=== PATIENT | female | born 1990 | race Hispanic/Latino ===

== ENCOUNTER 2016-06-29 10:06 | Emergency (ER) | payer MEDICAID, OTHER ==
[~2016-06-29] VITALS: Ht 177.8 cm; Wt 131.1 kg
[~2016-06-29 10:06] MED LIST: ACYC200C PO; CEFD300C3 PO; CYCL10TA9 PO; FLUT9.9S NS; HYDR-757 PO; METH4TAB PO; NAPR-243 PO; PRED10TA PO
[2016-06-29] MEDS ORDERED: PNV91TAB3 PO (10:28)
--- NOTE | 2016-06-29 10:46 | ED Abdominal Pain ---
General Chief Complaint: -Female Stated Complaint: ABD PAIN SOA 10 WKS PREG Nursing Triage Note: pt reports R lower abdominal/pelvic pain and SOA. Pt states she is aprx 10 weeks preg. Sepsis Screen: No Definite Risk Source of Information: Patient Exam Limitations: No Limitations History of Present Illness Time Seen By Provider: 10:42 Initial Comments To ER with complaints of abdominal pain and shortness of breath. The abdominal pain as sharp right lower quadrant began this morning while she was at work. She denies any cramping sensation or vaginal bleeding. She is approximately 10 weeks gestation . She also has had shortness of breath worse when laying down or on her side, better when sitting upright. She also has a nonproductive cough, worse at night. She denies any unilateral leg swelling, history of clotting disorders, recent travel history and she is a nonsmoker. She denies chest pain. No palpitations, no syncope or near syncope. Timing/Duration: 4-5 Days Severity/Quality: Moderate, Sharp Location: RLQ Radiation: No Radiation Associated Symptoms: No Back Pain, No Chest Pain, No Fever/Chills, No Nausea/ Vomiting Allergies and Home Medications Allergies Coded Allergies: No Known Drug Allergies (Unverified , 04/18/14) Home Medications Pnv95/Ferrous Fumarate/FA 1 Each Tablet 1 EACH PO DAILY (Reported) Review of Systems Constitutional: see HPINo chills, No fever EENTM: No Symptoms Reported Respiratory: See HPI Cough Cardiovascular: No Symptoms ReportedDenies Chest Pain, Denies Edema, Denies Irregular Heart Rate, Denies Lightheadedness Gastrointestinal: See HPI Abdominal PainDenies Constipated, Denies Diarrhea, Denies Nausea Genitourinary: No Symptoms ReportedDenies Burning, Denies Discharge, Denies Drainage, Denies Frequency, Denies Flank Pain, Denies Hematuria, Denies Incontinence, Denies Pain, Denies Urgency Musculoskeletal: no symptoms reported Skin: no symptoms reported Psychiatric/Neurological: No Symptoms Reported Endocrine: No Symptoms Reported Hematologic/Lymphatic: No Symptoms Reported Past Fyxmjkh-Pbkjpz-Zqcgrv Hx Patient Social History Alcohol Use: Denies Use Recreational Drug Use: No Smoking Status: Never a Smoker Recent Foreign Travel: No Contact w/Someone Who Travel: No Recent Infectious Disease Expo: No Recent Hopitalizations: No Seasonal Allergies Seasonal Allergies: No Surgeries HX Surgeries: Yes (RUPTURED APPENDIX--HOSPITALIZED X 3 WEEKS) Surgeries: Appendectomy Respiratory Hx Respiratory Disorders: No Cardiovascular Hx Cardiac Disorders: No Neurological Hx Neurological Disorders: No Reproductive System Hx Reproductive Disorders: No Female Reproductive Disorders: Denies 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 Genitourinary Hx Genitourinary Disorders: No Gastrointestinal Hx Gastrointestinal Disorders: No Musculoskeletal Hx Musculoskeletal Disorders: No Endocrine Hx Endocrine Disorders: No HEENT HX ENT Disorders: No Cancer Hx Cancer: No Psychosocial Hx Psychiatric Problems: Yes Behavioral Health Disorders: Anxiety Integumentary HX Skin/Integumentary Disorder: No Blood Transfusions Hx Blood Disorders: No Physical Exam Vital Signs VS - Last 72 Hours, by Label 06/29/16 10:20 Temp 96.6 Pulse 85 Resp 16 B/P 123/77 Pulse Ox 100 Capillary Refill : Less Than 3 Seconds General Appearance: WD/WN no apparent distress HEENT: PERRL/EOMI normal ENT inspection Neck: non-tender full range of motion Respiratory: chest non-tender lungs clear normal breath sounds no respiratory distress no accessory muscle use Cardiovascular: regular rate, rhythm no murmur Gastrointestinal: normal bowel sounds soft other (right lower abdomen and left lower abdomen. No midline pain. ) Extremities: normal range of motion non-tender normal capillary refillNo swelling Neurologic/Psychiatric: alert normal mood/affect oriented x 3 Skin: normal color warm/dry Focused Exam Lactic Acid Level Laboratory Tests Test 06/29/16 10:40 B-Type Natriuretic Peptide < 10.0PG/ML (<100.0) Human Chorionic Gonadotropin, Quant [id number]/ML (<5) H Progress/Results/Core Measures Results/Orders Lab Results Laboratory Tests Test 06/29/16 10:40 06/29/16 12:20 Range/Units B-Type Natriuretic Peptide < 10.0 <100.0 PG/ML Basophils # (Auto) 0.0 0.0-0.1 10^3/uL Basophils (%) (Auto) 0 0-10 % Eosinophils # (Auto) 0.1 0.0-0.3 10^3/uL Eosinophils (%) (Auto) 1 0-10 % Hematocrit 37 35-52 % Hemoglobin 12.1 11.5-16.0 G/DL Human Chorionic Gonadotropin, Quant 11014 H <5 MIU/ML Lymphocytes # (Auto) 3.0 1.0-4.0 X 10^3 Lymphocytes (%) (Auto) 23 12-44 % Mean Corpuscular Hemoglobin 26 25-34 PG Mean Corpuscular Hemoglobin Concent 32 32-36 G/DL Mean Corpuscular Volume 80 80-99 FL Mean Platelet Volume 9.2 7.4-10.4 FL Monocytes # (Auto) 0.6 0.0-1.0 X 10^3 Monocytes (%) (Auto) 5 0-12 % Neutrophils # (Auto) 9.3 H 1.8-7.8 X 10^3 Neutrophils (%) (Auto) 71 42-75 % Platelet Count 361 130-400 10^3/uL Red Blood Count 4.67 4.35-5.85 10^6/uL Red Cell Distribution Width 16.7 H 10.0-14.5 % White Blood Count 13.0 H 4.3-11.0 10^3/uL Urine Bacteria FEW H /HPF Urine Bilirubin NEGATIVE NEGATIVE Urine Casts NONE /LPF Urine Clarity SLIGHTLY CLOUDY Urine Color YELLOW Urine Crystals NONE /LPF Urine Culture Indicated YES Urine Glucose (UA) NEGATIVE NEGATIVE Urine Ketones 2+ H NEGATIVE Urine Leukocyte Esterase 3+ H NEGATIVE Urine Mucus NEGATIVE /LPF Urine Nitrite NEGATIVE NEGATIVE Urine Protein NEGATIVE NEGATIVE Urine RBC NONE /HPF Urine RBC (Auto) NEGATIVE NEGATIVE Urine Specific [place] 1.010 L 1.016-1.022 Urine Squamous Epithelial Cells 25-50 H /HPF Urine Urobilinogen NORMAL NORMAL MG/DL Urine WBC 10-25 H /HPF Urine Yeast FEW H /HPF Urine pH 7 5-9 My Orders Orders-ARMANDO PADILLA DECAL DECORATOR Hcg,Quantitative (06/29/16 10:37) Us Ob Single Fetus<14 [id number] (06/29/16 10:37) Chest Pa/Lat (2 View) (06/29/16 10:42) BNP (06/29/16 10:46) Acetaminophen Tablet (Tylenol Tablet) (06/29/16 11:15) Medications Given in ED Current Medications Medications Dose Ordered Sig/Esme Route Start Time Stop Time Status Last Admin Dose Admin Acetaminophen 1,000 mg ONCE ONCE PO 06/29/16 11:15 06/29/16 11:16 DC 06/29/16 11:24 1,000 MG Vital Signs/I&O Vital Sign - Last 12Hours 06/29/16 10:20 Temp 96.6 Pulse 85 Resp 16 B/P 123/77 Pulse Ox 100 Blood Pressure Mean: 92 Diagnostic Imaging Diagonstic Imaging: Ultrasound Comments NAME: AMANDEEP IBARRA [employer] REC#: [id number] PT STATUS: REG ER : 1990 PHYSICIAN: ARMANDO PADILLA APRN ADMIT DATE: 06/29/16/ER Draft Date of Exam:06/29/16 US OB SINGLE FETUS<14 [id number] PROCEDURE: US OB SINGLE FETUS <14 WKS. TECHNIQUE: Multiple real-time grayscale images were obtained over the gravid uterus in various projections. INDICATION: Abdominal pain. Shortness of breath. FINDINGS: There is a single intrauterine . The embryo heart rate is 165 beats per minute. The crown-rump length is at 10 weeks and one day of gestation. This is equal to dating based on LMP. The ovaries are obscured. The please note that the provided heart rate of 165 is based on the technologist's evaluation and notes and was not documented within image on this exam due to technical error. IMPRESSION: Live intrauterine . Dictated on workstation # [id number] Dict: 06/29/16 1126 Trans: 06/29/16 1200 [facility] [phone] Interpreted by: STEVE NEVAREZ MD Electronically signed by: Departure Communication Progress Notes 1047-Perc Criteria is negative. O2 100% room air, HR 90. No dyspnea or shortness of breath at this time. 1121-US done. Pt states does not want a chest x ray due to concerns of radiation. I advised we'd shield with lead but she would still prefer not to have that done. She believes that her shortness of breath is her anxiety as she' s had it before. She is scheduled to see Dr Cornejo for this on Saturday07/02/16. Impression Impression: Primary Impression: Urinary tract infection Additional Impressions: Shortness of breath Intrauterine Disposition: 01 HOME, SELF-CARE Condition: Stable Departure-Patient Inst. Decision time for Depature: 12:39 Referrals: DEBRA CORNEJO RICHARD A DO (PCP/Family) Primary Care Physician Patient Instructions: Urinary Tract Infection, Adult (DC) Add. Discharge Instructions: 1. Return to the emergency room for any worsening shortness of breath, worsening abdominal pain, lightheadedness, passing out, fevers or any other concerns 2. Keep your appointment with Dr. CORNEJO on Saturday 3. Start antibiotics today. All discharge instructions reviewed with patient and/or family. Voiced understanding. Scripts Cefuroxime Axetil (Cefuroxime)250 Mg [id number] Mg PO BID #14 TAB Prov:ARMANDO PADILLA APRN 06/29/16 Copy Copies To 1: DEBRA CORNEJO PETER J APRN Jun 29, 2016 10:46
[2016-06-29 10:47] LABS: BASOPHILS % (AUTO) 0 % (0-10); EOSINOPHILS # (AUTO) 0.1 10^3/uL (0.0-0.3); EOSINOPHILS % (AUTO) 1 % (0-10); LYMPHOCYTES % (AUTO) 23 % (12-44); MEAN CORPUSCULAR HEMOGLOBIN 26 PG (25-34); MEAN CORPUSCULAR HGB CONC 32 G/DL (32-36); MEAN CORPUSCULAR VOLUME 80 FL (80-99); MEAN PLATELET VOLUME 9.2 FL (7.4-10.4); MONOCYTES # (AUTO) 0.6 X 10^3 (0.0-1.0); MONOCYTES % (AUTO) 5 % (0-12); NEUTROPHILS # (AUTO) 9.3 X 10^3 (1.8-7.8); NEUTROPHILS % (AUTO) 71 % (42-75); PLATELET COUNT 361 10^3/uL (130-400); RED BLOOD COUNT 4.67 10^6/uL (4.35-5.85); RED CELL DISTRIBUTION WIDTH 16.7 % (10.0-14.5)
[2016-06-29] MEDS ORDERED: ACETAMINOPHEN 500 MG TAB (TYLENOL) PO ONE (11:15)
--- NOTE | 2016-06-29 12:01 | Diagnostic Imaging Report ---
PROCEDURE: US OB SINGLE FETUS <14 WKS. TECHNIQUE: Multiple real-time grayscale images were obtained over the gravid uterus in various projections. INDICATION: Abdominal pain. Shortness of breath. FINDINGS: There is a single intrauterine . The embryo heart rate is 165 beats per minute. The crown-rump length is at 10 weeks and one day of gestation. This is equal to dating based on LMP. The ovaries are obscured. The please note that the provided heart rate of 165 is based on the technologist's evaluation and notes and was not documented within image on this exam due to technical error. IMPRESSION: Live intrauterine . Dictated by: Dictated on workstation # [id number]
[2016-06-29 12:30] LABS: BILIRUBIN,URINE NEGATIVE (NEGATIVE); KETONES,URINE 2+ (NEGATIVE); LEUKOCYTE ESTERASE ,URINE 3+ (NEGATIVE); NITRITE,URINE NEGATIVE (NEGATIVE); PH,URINE 7 (5-9); PROTEIN,URINE NEGATIVE (NEGATIVE); UROBILINOGEN,URINE NORMAL (NORMAL)
[2016-06-29 12:38] LABS: SQUAMOUS EPITHELIAL CELL,UR 25-50 /HPF; YEAST,URINE FEW /HPF
[2016-06-29] MEDS ORDERED: CEFU250T80 PO (12:40)
[2016-06-29 12:54] VITALS: BP 128/80
== END 2016-06-29 12:54 | disposition home or self-care (01) ==
LOC: EDUNIT# 10:06 → ER 10:10
DX: O26.891 Other specified pregnancy related conditions, first trimester (principal); R10.30 Lower abdominal pain, unspecified; O23.41 Unspecified infection of urinary tract in pregnancy, first trimester; R06.02 Shortness of breath; Z3A.10 10 weeks gestation of pregnancy
CPT/HCPCS: 36415; 76801; 81000; 83880; 84702; 85025; 87088; 99283

== ENCOUNTER 2016-07-19 16:59 | Emergency (ER) | payer MEDICAID ==
[~2016-07-19] VITALS: Ht 177.8 cm; Wt 119.3 kg
[~2016-07-19 16:59] MED LIST changes: +CEFU250T80 PO; +PNV91TAB3 PO
[2016-07-19] MEDS ORDERED: ACET325T38 PO (19:12)
[2016-07-19 19:35] LABS: BASOPHILS % (AUTO) 0 % (0-10); EOSINOPHILS # (AUTO) 0.1 10^3/uL (0.0-0.3); EOSINOPHILS % (AUTO) 1 % (0-10); LYMPHOCYTES # (AUTO) 3.3 X 10^3 (1.0-4.0); LYMPHOCYTES % (AUTO) 21 % (12-44); MEAN CORPUSCULAR HEMOGLOBIN 27 PG (25-34); MEAN CORPUSCULAR HGB CONC 33 G/DL (32-36); MEAN CORPUSCULAR VOLUME 81 FL (80-99); MEAN PLATELET VOLUME 9.4 FL (7.4-10.4); MONOCYTES # (AUTO) 0.9 X 10^3 (0.0-1.0); MONOCYTES % (AUTO) 6 % (0-12); NEUTROPHILS # (AUTO) 11.8 X 10^3 (1.8-7.8); NEUTROPHILS % (AUTO) 73 % (42-75); PLATELET COUNT 348 10^3/uL (130-400); RED BLOOD COUNT 4.61 10^6/uL (4.35-5.85); RED CELL DISTRIBUTION WIDTH 16.9 % (10.0-14.5); WHITE BLOOD COUNT 16.2 10^3/uL (4.3-11.0)
[2016-07-19 19:40] LABS: BILIRUBIN,URINE NEGATIVE (NEGATIVE); KETONES,URINE NEGATIVE (NEGATIVE); LEUKOCYTE ESTERASE ,URINE 3+ (NEGATIVE); NITRITE,URINE NEGATIVE (NEGATIVE); PH,URINE 6 (5-9); PROTEIN,URINE 1+ (NEGATIVE); UROBILINOGEN,URINE 1 MG/DL (NORMAL)
[2016-07-19 19:52] LABS: SQUAMOUS EPITHELIAL CELL,UR >50 /HPF
[2016-07-19 20:10] LABS: BAND NEUTROPHILS 1 %; BASOPHILS % (MANUAL) 0 %; EOSINOPHILS % (MANUAL) 1 %; LYMPHOCYTES % (MANUAL) 24 %; NEUTROPHILS % (MANUAL) 71 %
[2016-07-19] MEDS ORDERED: AZITHROMYCIN 250 MG TAB (ZITHROMAX) PO ONE (21:15)
[2016-07-19] MEDS ORDERED: LIDOCAINE 1% INJ 20 ML (XYLOCAINE) VIAL INJ ONE (21:15)
[2016-07-19] MEDS ORDERED: cefTRIAXone 1 GM (ROCEPHIN) VIAL IM ONE (21:15)
--- NOTE | 2016-07-19 21:35 | ED GU-Female ---
General Chief Complaint: -Female Stated Complaint: VAG BLEEDING/R BREAST/BACK PAIN/13 WKS PREG Nursing Triage Note: pt c/o abd pain, spotting, chest pain starting yesterday. pt is 13 weeks . Nursing Sepsis Screen: No Definite Risk Source: patient Exam Limitations: no limitations History of Present Illness Time seen by provider: 18:09 Initial Comments This 26-year-old woman presents to the emergency room with complaints of lower abdominal pain and some chest discomfort. She is about 13 weeks gestational age. She had some spotting with wiping today as well. She denies dysuria but does have some vaginal discharge different from her prior pregnancies. Discomfort was bad enough that she could not sleep after taking Tylenol. She has some right lateral chest pain that is tender to palpation and worse with lying on her back. It is intermittent and not severe. She denies any lower extremity symptoms. An ultrasound performed on June 29 showed a 10 week gestational age single intrauterine . heart tones by Doppler are 160-170 Allergies and Home Medications Allergies Coded Allergies: No Known Drug Allergies (Unverified , 04/18/14) Home Medications Acetaminophen 325 Mg Tablet, Unknown Dose PO PRN, (Reported) Clindamycin HCl 300 Mg Capsule, 300 MG PO BID, #14 Prescribed by: MIGEL TORRES on 07/19/162135 Miconazole/Skin Cleanser No.17 1 Each Kit, 1 EACH VG HS, #1 Prescribed by: MIGEL TORRES on 07/19/162135 Pnv95/Ferrous Fumarate/FA 1 Each Tablet, 1 EACH PO DAILY, (Reported) Constitutional: no symptoms reported EENTM: no symptoms reported Respiratory: see HPI Cardiovascular: no symptoms reported Gastrointestinal: see HPI Genitourinary: see HPI : Yes Expected Date of Delivery: Jan 24, 2017 Musculoskeletal: no symptoms reported Skin: no symptoms reported Psychiatric/Neurological: No Symptoms Reported Endocrine: No Symptoms Reported Past Xiirbhu-Tctucs-Xqatkc Hx Patient Social History Alcohol Use: Denies Use Recreational Drug Use: No Smoking Status: Never a Smoker Recent Foreign Travel: No Contact w/Someone Who Travel: No Recent Infectious Disease Expo: No Recent Hopitalizations: No Seasonal Allergies Seasonal Allergies: No Surgeries HX Surgeries: Yes (RUPTURED APPENDIX--HOSPITALIZED X 3 WEEKS) Surgeries: Appendectomy Respiratory Hx Respiratory Disorders: No Cardiovascular Hx Cardiac Disorders: No Neurological Hx Neurological Disorders: No Reproductive System : Yes Hx : 2 Hx Para: 1 Hx Reproductive Disorders: No Female Reproductive Disorders: Denies 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 Genitourinary Hx Genitourinary Disorders: No Gastrointestinal Hx Gastrointestinal Disorders: No Musculoskeletal Hx Musculoskeletal Disorders: No Endocrine Hx Endocrine Disorders: No HEENT HX ENT Disorders: No Cancer Hx Cancer: No Psychosocial Hx Psychiatric Problems: Yes Behavioral Health Disorders: Anxiety Integumentary HX Skin/Integumentary Disorder: No Blood Transfusions Hx Blood Disorders: No Physical Exam Vital Signs Vital Sign - Last 12Hours 07/19/16 07/19/16 18:04 22:06 Temp 98.6 Pulse 90 Resp 14 B/P (MAP) 116/76 Pulse Ox 98 Capillary Refill : Less Than 3 Seconds General Appearance: WD/WN, no apparent distress HEENT: PERRL/EOMI, normal ENT inspection Neck: normal inspection Cardiovascular: regular rate, rhythm, no edema, no murmur Respiratory: lungs clear, normal breath sounds, no respiratory distress, no accessory muscle use, other (Right lateral chest wall tender to palpation) Gastrointestinal: normal bowel sounds, soft, other (Bilateral adnexal tenderness) Genital/Rectal: tenderness, other (Somewhat purulent vaginal discharge and cervical discharge. Vaginal wall erythematous. Cervical motion tenderness noted. 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4 7.4-10.4 FL Neutrophils (%) (Auto) 73 42-75 % Lymphocytes (%) (Auto) 21 12-44 % Monocytes (%) (Auto) 6 0-12 % Eosinophils (%) (Auto) 1 0-10 % Basophils (%) (Auto) 0 0-10 % Neutrophils # (Auto) 11.8 H 1.8-7.8 X 10^3 Lymphocytes # (Auto) 3.3 1.0-4.0 X 10^3 Monocytes # (Auto) 0.9 0.0-1.0 X 10^3 Eosinophils # (Auto) 0.1 0.0-0.3 10^3/uL Basophils # (Auto) 0.0 0.0-0.1 10^3/uL Neutrophils % (Manual) 71 % Lymphocytes % (Manual) 24 % Monocytes % (Manual) 3 % Eosinophils % (Manual) 1 % Basophils % (Manual) 0 % Band Neutrophils 1 % Blood Morphology Comment NORMAL Human Chorionic Gonadotropin, Quant 83247 H <5 MIU/ML Urine Color YELLOW Urine Clarity SLIGHTLY CLOUDY Urine pH 6 5-9 Urine Specific [place] 1.025 H 1.016-1.022 Urine Protein 1+ H NEGATIVE Urine Glucose (UA) NEGATIVE NEGATIVE Urine Ketones NEGATIVE NEGATIVE Urine Nitrite NEGATIVE NEGATIVE Urine Bilirubin NEGATIVE NEGATIVE Urine Urobilinogen 1 NORMAL MG/DL Urine Leukocyte Esterase 3+ H NEGATIVE Urine RBC (Auto) 1+ H NEGATIVE Urine RBC RARE /HPF Urine WBC 10-25 H /HPF Urine Squamous Epithelial Cells >50 H /HPF Urine Crystals NONE /LPF Urine Bacteria MODERATE H /HPF Urine Casts NONE /LPF Urine Mucus MODERATE H /LPF Urine Culture Indicated YES My Orders Orders - MIGEL BASHIR MD Cbc With Automated Diff (07/19/16 18:09) Hcg,Quantitative (07/19/16 18:09) Ua Culture If Indicated (07/19/16 18:09) Abo Rh Type (07/19/16 18:09) Manual Differential (07/19/16 19:20) Urine Culture (07/19/16 19:34) Wet Prep (07/19/16 20:15) Neisseria Gonorrhea Dna (07/19/16 20:15) Chlamydia Dna (4/6/17 20:15) Genital Culture (07/19/16 20:15) Nancy Prep (07/19/16 20:15) Ceftriaxone Injection (Rocephin Injectio (07/19/16 21:15) Lidocaine 1% Injection (Xylocaine 1% Inj (07/19/16 21:15) Azithromycin Tablet (Zithromax Tablet) (07/19/16 21:15) Medications Given in ED Current Medications Medications Dose Ordered Sig/Esme Route Start Time Stop Time Status Last Admin Dose Admin Azithromycin 1,000 mg ONCE ONCE PO 07/19/16 21:15 07/19/16 21:16 DC 07/19/16 21:39 1,000 MG Ceftriaxone Sodium 1,000 mg ONCE ONCE IM 07/19/16 21:15 07/19/16 21:16 DC 07/19/16 21:40 1,000 MG Lidocaine HCl 2.1 ml ONCE ONCE INJ 07/19/16 21:15 07/19/16 21:16 DC 07/19/16 21:40 2.1 ML Vital Signs/I&O Vital Sign - Last 12Hours 07/19/16 22:06 Temp 98.6 Pulse 96 Resp 16 Pulse Ox 98 Blood Pressure Mean: 89 Progress Note : Progress Note Patient was found to have cervicitis on exam. Preliminary vaginal cultures showed rare yeast, positive clue cells, moderate WBC, and negative trichomoniasis. Patient was treated with a gram of Rocephin IM and azithromycin 1 g orally. She was dismissed with a prescription for clindamycin and Monistat for further treatment. heart tones were 160-170 by Doppler. Departure Impression Impression: Primary Impression: Pelvic pain affecting Additional Impressions: Cervicitis Bacterial vaginosis Urinary tract infection Qualified Codes: N39.0 - Urinary tract infection, site not specified Vaginal candidiasis Disposition: HOME, SELF-CARE Condition: Improved Departure-Patient Inst. Decision time for Depature: 21:31 Referrals: DEBRA MATTHEWS DO (PCP) Primary Care Physician ALEJANDRO RENEE DO (Family) Primary Care Physician Patient Instructions: Urinary Tract Infection, Adult (DC) Add. Discharge Instructions: Complete your antibiotics as prescribed. Follow-up with Dr. MATTHEWS as soon as possible to review urine and vaginal cultures. Return to emergency room if symptoms worsen. You may use Tylenol (acetaminophen) up to 1000 mg every 6 hours as needed for pain. Drink plenty of clear liquids. Nothing vaginally including intercourse until cleared by Dr. MATTHEWS. All discharge instructions reviewed with patient and/or family. Voiced understanding. Scripts Miconazole/Skin Cleanser No.17 (Miconazole 3 Kit) 1 Each Kit 1 EACH VG HS, #1 KIT Prov: MIGEL BASHIR MD 07/19/16 Clindamycin HCl (Clindamycin HCl) 300 Mg Capsule 300 MG PO BID, #14 CAP Prov: MIGEL BASHIR MD 07/19/16 Copy Copies To 1: DEBRA MATTHEWS JOSHUA T MD Jul 19, 2016 21:35
[2016-07-19] MEDS ORDERED: MICO1KIT18 VG (21:36)
[2016-07-19] MEDS ORDERED: CLIN300C11 PO (21:36)
[2016-07-19 22:06] VITALS: BP 127/81
--- OUTSIDE RECORDS SUMMARY | 2016-08-19 22:32 | XMS REPORT | Continuity of Care Document ---
Author Author [facility] Organization [facility] Address Unknown Phone Unavailable Allergies Active Description Code Type Severity Reaction Onset Reported/Identified Relationship to Patient Clinical Status Yes No Known Drug Allergies [id number] Drug Allergy Unknown N/ A 04/18/2014 Medications Problems Date Dx Coded Attending Type Code Diagnosis Diagnosed By 04/18/2014 ARMANDO PADILLA APRN Ot 351.0 CH[employer]ERS'S PALSY 04/18/2014 ARMANDO PADILLA APRN Ot 784.0 HEADACHE 11/02/2014 LEFTY DO, JACKIE K Ot 307.81 TENSION HEADACHE 11/02/2014 LEFTY DO, JACKIE K Ot 786.50 CHEST PAIN NOS 11/02/2014 LEFTY DO, JACKIE K Ot 786.52 PAINFUL RESPIRATION 01/02/2016 LEFTY DO, JACKIE K Ot J01.90 ACUTE SINUSITIS, UNSPECIFIED 01/02/2016 LEFTY DO, JACKIE K Ot J40 BRONCHITIS, NOT SPECIFIED ACUTE OR CH 01/02/2016 LEFTY DO, JACKIE K Ot R05 COUGH 01/02/2016 LEFTY DO, JACKIE K Ot R07.81 PLEURODYNIA 01/04/2016 LEFTY DO, JACKIE K Ot J01.90 ACUTE SINUSITIS, UNSPECIFIED 01/04/2016 LEFTY DO, JACKIE K Ot J40 BRONCHITIS, NOT SPECIFIED ACUTE OR CH 01/04/2016 LEFTY DO, JACKIE K Ot R05 COUGH 01/04/2016 LEFTY DO, JACKIE K Ot R07.81 PLEURODYNIA 06/29/2016 ARMANDO PADILLA APRN Ot O23.41 UNSP INFCT OF URINARY TRACT IN 06/29/2016 ARMANDO PADILLA APRN Ot O26.891 OTH RELATED CONDITIONS, FIRST 06/29/2016 ARMANDO PADILLA APRN Ot R06.02 SHORTNESS OF BREATH 06/29/2016 ARMANDO PADILLA HOT WORT SETTLER Ot R10.30 LOWER ABDOMINAL PAIN, UNSPECIFIED 06/29/2016 ARMANDO PADILLA APRN Ot Z3A.10 10 WEEKS GESTATION OF 07/02/2016 ARMANDO PADILLA APRN Ot O23.41 UNSP INFCT OF URINARY TRACT IN 07/02/2016 ARMANDO PADILLA APRN Ot O26.891 OTH RELATED CONDITIONS, FIRST 07/02/2016 ARMANDO PADILLA HOT WORT SETTLER Ot R06.02 SHORTNESS OF BREATH 07/02/2016 ARMANDO PADILLA HOT WORT SETTLER Ot R10.30 LOWER ABDOMINAL PAIN, UNSPECIFIED 07/02/2016 ARMANDO PADILLA APRN Ot Z3A.10 10 WEEKS GESTATION OF 07/19/2016 MIGEL BASHIR MD Ot B37.3 CANDIDIASIS OF VULVA AND VAGINA 07/19/2016 MIGEL BASHIR MD Ot O23.41 UNSP INFCT OF URINARY TRACT IN 07/19/2016 MIGEL BASHIR MD Ot O23.591 INFECTION OTH PRT GENITL TRCT IN PREGNAN 07/19/2016 MIGEL BASHIR MD Ot O26.891 OT RELATED CONDITIONS, FIRST 07/19/2016 MIGEL BASHIR MD Ot R10.2 PELVIC AND PERINEAL PAIN 07/19/2016 MIGEL BASHIR MD Ot Z3A.13 13 WEEKS GESTATION OF 07/20/2016 MIGEL BASHIR MD Ot B37.3 CANDIDIASIS OF VULVA AND VAGINA 07/20/2016 MIGEL BASHIR MD Ot O23.41 UNSP INFCT OF URINARY TRACT IN 07/20/2016 MIGEL BASHIR MD Ot O23.591 INFECTION OTH PRT GENITL TRCT IN PREGNAN 07/20/2016 MIGEL BASHIR MD Ot O26.891 OT RELATED CONDITIONS, FIRST 07/20/2016 MIGEL BASHIR MD Ot R10.2 PELVIC AND PERINEAL PAIN 07/20/2016 MIGEL BASHIR MD Ot Z3A.13 13 WEEKS GESTATION OF 07/25/2016 JCAKIE OLEA DO Ot K80.20 CALCULUS OF GALLBLADDER W/O CHOLECYSTITI 07/25/2016 LEFTY DO, JACKIE K Ot O23.41 UNSP INFCT OF URINARY TRACT IN 07/25/2016 LEFTY , JACKIE K Ot O99.211 OBESITY COMPLICATING , FIRST TR 07/25/2016 LEFTY JAVON BAIRDA K Ot O99.611 DISEASES OF THE DGSTV SYS COMP 07/25/2016 LEFTY JAVON BAIRDA K Ot R07.89 OTHER CHEST PAIN 07/25/2016 LEFTY DO, JACKIE K Ot Z3A.13 13 WEEKS GESTATION OF 07/27/2016 LEFTY , JACKIE K Ot K80.20 CALCULUS OF GALLBLADDER W/O CHOLECYSTITI 07/27/2016 LEFTY JAVON BAIRDA K Ot O23.41 UNSP INFCT OF URINARY TRACT IN 07/27/2016 LEFTY JAVON BAIRDA K Ot O99.211 OBESITY COMPLICATING , FIRST TR 07/27/2016 LEFTY JACKIE K Ot O99.611 DISEASES OF THE DGSTV SYS COMP 07/27/2016 LEFTY JACKIE K Ot R07.89 OTHER CHEST PAIN 07/27/2016 LEFTY , JACKIE K Ot Z3A.13 13 WEEKS GESTATION OF 07/31/2016 JESS EM, KRISTIN Alexis Ot E66.01 MORBID (SEVERE) OBESITY DUE TO EXCESS CA 07/31/2016 JESS EM, KRISTIN Alexis Ot E86.0 DEHYDRATION 07/31/2016 JESS EM, KRISTIN Alexis Ot K80.00 CALCULUS OF GALLBLADDER W ACUTE CHOLECYS 07/31/2016 JESS EM, KRISTIN Alexis Ot O99.211 OBESITY COMPLICATING , FIRST TR 07/31/2016 JESS EM, KRISTIN Alexis Ot O99.611 DISEASES OF THE DGSTV SYS COMP 07/31/2016 JESS ME, KRISTIN Alexis Ot O99.89 OTH DISEASES AND CONDITIONS COMPL PREG/ C 07/31/2016 KRISTIN MERCADO MD Ot Z3A.13 13 WEEKS GESTATION OF 07/31/2016 KRISTIN MERCADO MD, Ot Z68.41 BODY MASS INDEX (BMI) 40.0-44.9, ADULT 08/09/2016 KRISTIN MERCADO MD Ot E66.01 MORBID (SEVERE) OBESITY DUE TO EXCESS CA 08/09/2016 KRISTIN MERCADO MD, Ot E86.0 DEHYDRATION 08/09/2016 KRISTIN MERCADO MD, Ot K80.00 CALCULUS OF GALLBLADDER W ACUTE CHOLECYS 08/09/2016 KRISTIN MERCADO MD, Ot O99.211 OBESITY COMPLICATING , FIRST TR 08/09/2016 KRISTIN MERCADO MD, Ot O99.611 DISEASES OF THE DGSTV SYS COMP 08/09/2016 KRISTIN MERCADO MD, Ot O99.89 OTH DISEASES AND CONDITIONS COMPL PREG/ C 08/09/2016 KRISTIN MERCADO MD, Ot Z3A.13 13 WEEKS GESTATION OF 08/09/2016 KRISTIN MERCADO MD, Ot Z68.41 BODY MASS INDEX (BMI) 40.0-44.9, ADULT Procedures Results Test Result Range Complete blood count (CBC) with automated white blood cell (WBC) differential - 06/29/16 10:40 Blood leukocytes automated count (number/volume) 13.0 10*3/ uL 4.3-11.0 Blood erythrocytes automated count (number/volume) 4.67 10*6 /uL 4.35-5.85 Venous blood hemoglobin measurement (mass/volume) 12.1 g/dL 11.5-16.0 Blood hematocrit (volume fraction) 37 % 35-52 Automated erythrocyte mean corpuscular volume 80 [foz_us] 80-99 Automated erythrocyte mean corpuscular hemoglobin (mass per erythrocyte) 26 pg 25-34 Automated erythrocyte mean corpuscular hemoglobin concentration measurement ( mass/volume) 32 g/dL 32-36 Automated erythrocyte distribution width ratio 16.7 % 10.0-14.5 Automated blood platelet count (count/volume) 361 10*3/uL 130-400 Automated blood platelet mean volume measurement 9.2 [foz_us ] 7.4-10.4 Automated blood neutrophils/100 leukocytes 71 % 42-75 Automated blood lymphocytes/100 leukocytes 23 % 12-44 Blood monocytes/100 leukocytes 5 % 0-12 Automated blood eosinophils/100 leukocytes 1 % 0-10 Automated blood basophils/100 leukocytes 0 % 0-10 Blood neutrophils automated count (number/volume) 9.3 10*3 1.8-7.8 Blood lymphocytes automated count (number/volume) 3.0 10*3 1.0-4.0 Blood monocytes automated count (number/volume) 0.6 10*3 0.0-1.0 Automated eosinophil count 0.1 10*3/uL 0.0-0.3 Automated blood basophil count (count/volume) 0.0 10*3/uL 0.0-0.1 Serum or plasma lithium measurement (moles/volume) - 06/29/16 10:40 BNP level < pg/mL <100.0 Serum or plasma choriogonadotropin measurement (units/volume) - 06/29/16 10:40 Serum or plasma choriogonadotropin measurement (units/volume) 63840 m[iU]/mL <5 Complete urinalysis with reflex to culture - 06/29/16 12:20 Urine color determination YELLOW NRG Urine clarity determination SLIGHTLY CLOUDY NRG Urine pH measurement by test strip 7 5- 9 Specific gravity of urine by test strip 1.010 1.016-1.022 Urine protein assay by test strip, semi-quantitative NEGATIVE NEGATIVE Urine glucose detection by automated test strip NEGATIVE NEGATIVE Erythrocytes detection in urine sediment by light microscopy NEGATIVE NEGATIVE Urine ketones detection by automated test strip 2+ NEGATIVE Urine nitrite detection by test strip NEGATIVE NEGATIVE Urine total bilirubin detection by test strip NEGATIVE NEGATIVE Urine urobilinogen measurement by automated test strip (mass/volume) NORMAL NORMAL Urine leukocyte esterase detection by dipstick 3+ NEGATIVE Automated urine sediment erythrocyte count by microscopy (number/high power field) NONE NRG Automated urine sediment leukocyte count by microscopy (number/high power field ) [HPF] NRG Bacteria detection in urine sediment by light microscopy FEW NRG Squamous epithelial cells detection in urine sediment by light microscopy 25-50 NRG Crystals detection in urine sediment by light microscopy NONE NRG Casts detection in urine sediment by light microscopy NONE NRG Mucus detection in urine sediment by light microscopy NEGATIVE NRG Complete urinalysis with reflex to culture YES NRG Yeast detection in urine sediment by light microscopy FEW NRG Bacterial urine culture - 06/29/16 12:20 Bacterial urine culture FOOTNOTE NRG Complete blood count (CBC) with automated white blood cell (WBC) differential - 07/19/16 19:20 Blood leukocytes automated count (number/volume) 16.2 10*3/ uL 4.3-11.0 Blood erythrocytes automated count (number/volume) 4.61 10*6 /uL 4.35-5.85 Venous blood hemoglobin measurement (mass/volume) 12.3 g/dL 11.5-16.0 Blood hematocrit (volume fraction) 37 % 35-52 Automated erythrocyte mean corpuscular volume 81 [foz_us] 80-99 Automated erythrocyte mean corpuscular hemoglobin (mass per erythrocyte) 27 pg 25-34 Automated erythrocyte mean corpuscular hemoglobin concentration measurement ( mass/volume) 33 g/dL 32-36 Automated erythrocyte distribution width ratio 16.9 % 10.0-14.5 Automated blood platelet count (count/volume) 348 10*3/uL 130-400 Automated blood platelet mean volume measurement 9.4 [foz_us ] 7.4-10.4 Automated blood neutrophils/100 leukocytes 73 % 42-75 Automated blood lymphocytes/100 leukocytes 21 % 12-44 Blood monocytes/100 leukocytes 6 % 0-12 Automated blood eosinophils/100 leukocytes 1 % 0-10 Automated blood basophils/100 leukocytes 0 % 0-10 Blood neutrophils automated count (number/volume) 11.8 10*3 1.8-7.8 Blood lymphocytes automated count (number/volume) 3.3 10*3 1.0-4.0 Blood monocytes automated count (number/volume) 0.9 10*3 0.0-1.0 Automated eosinophil count 0.1 10*3/uL 0.0-0.3 Automated blood basophil count (count/volume) 0.0 10*3/uL 0.0-0.1 ABO+Rh group - 07/19/16 19:20 ABO+Rh group BP NRG Blood manual differential performed detection - 07/19/16 19:20 Blood monocytes/100 leukocytes 3 % NRG Manual blood segmented neutrophils/100 leukocytes 71 % NRG Blood band neutrophils/100 leukocytes 1 % NRG Manual blood lymphocytes/100 leukocytes 24 % NRG Manual eosinophils/100 leukocytes in nose 1 % NRG Manual blood basophils/100 leukocytes 0 % NRG Blood erythrocyte morphology finding identification NORMAL NRG Serum or plasma choriogonadotropin measurement (units/volume) - 07/19/16 19:20 Serum or plasma choriogonadotropin measurement (units/volume) 43780 m[iU]/mL <5 Complete urinalysis with reflex to culture - 07/19/16 19:34 Urine color determination YELLOW NRG Urine clarity determination SLIGHTLY CLOUDY NRG Urine pH measurement by test strip 6 5- 9 Specific gravity of urine by test strip 1.025 1.016-1.022 Urine protein assay by test strip, semi-quantitative 1+ NEGATIVE Urine glucose detection by automated test strip NEGATIVE NEGATIVE Erythrocytes detection in urine sediment by light microscopy 1+ NEGATIVE Urine ketones detection by automated test strip NEGATIVE NEGATIVE Urine nitrite detection by test strip NEGATIVE NEGATIVE Urine total bilirubin detection by test strip NEGATIVE NEGATIVE Urine urobilinogen measurement by automated test strip (mass/volume) 1 mg/dL NORMAL Urine leukocyte esterase detection by dipstick 3+ NEGATIVE Automated urine sediment erythrocyte count by microscopy (number/high power field) RARE NRG Automated urine sediment leukocyte count by microscopy (number/high power field ) [HPF] NRG Bacteria detection in urine sediment by light microscopy MODERATE NRG Squamous epithelial cells detection in urine sediment by light microscopy >50 NRG Crystals detection in urine sediment by light microscopy NONE NRG Casts detection in urine sediment by light microscopy NONE NRG Mucus detection in urine sediment by light microscopy MODERATE NRG Complete urinalysis with reflex to culture YES NRG Bacterial urine culture - 07/19/16 19:34 Bacterial urine culture [id number] NRG COLONY COUNT 10,000/ML - 100,000/ML NRG FTX;REPORTABLE PLUS, NRG FREE TEXT ENTRY 2 MIXED GRAM POSITIVES <10,000/ML NRG Bacteria identification in genital specimen by aerobe culture - 07/19/16 21:10 FREE TEXT EXTERNAL PLUS NORMAL LEEANN NRG QUANTITY OF GROWTH Abundant Growth NRG Bacteria identification in genital specimen by aerobe culture [id number] NRG Microscopic examination by JOSÉ LUIS preparation - 07/19/16 21:10 Microscopic examination by JOSÉ LUIS preparation TNP NRG Microscopic examination by wet preparation - 07/19/16 21:10 WET PREP RESULTS 2124 BY PK/KD NRG Neisseria gonorrhoeae DNA detection by probe and signal amplification method - 07/19/16 21:10 Gonorrhea amp DNA-urine Negative Negative Chlamydia trachomatis DNA detection by probe and signal amplification method - 07/19/16 21:10 Chlamydia trachomatis DNA detection by probe and target amplification method Negative Negative Complete blood count (CBC) with automated white blood cell (WBC) differential - 07/25/16 11:20 Blood leukocytes automated count (number/volume) 13.7 10*3/ uL 4.3-11.0 Blood erythrocytes automated count (number/volume) 4.57 10*6 /uL 4.35-5.85 Venous blood hemoglobin measurement (mass/volume) 12.1 g/dL 11.5-16.0 Blood hematocrit (volume fraction) 37 % 35-52 Automated erythrocyte mean corpuscular volume 81 [foz_us] 80-99 Automated erythrocyte mean corpuscular hemoglobin (mass per erythrocyte) 27 pg 25-34 Automated erythrocyte mean corpuscular hemoglobin concentration measurement ( mass/volume) 33 g/dL 32-36 Automated erythrocyte distribution width ratio 16.4 % 10.0-14.5 Automated blood platelet count (count/volume) 329 10*3/uL 130-400 Automated blood platelet mean volume measurement 9.3 [foz_us ] 7.4-10.4 Automated blood neutrophils/100 leukocytes 69 % 42-75 Automated blood lymphocytes/100 leukocytes 25 % 12-44 Blood monocytes/100 leukocytes 5 % 0-12 Automated blood eosinophils/100 leukocytes 0 % 0-10 Automated blood basophils/100 leukocytes 0 % 0-10 Blood neutrophils automated count (number/volume) 9.5 10*3 1.8-7.8 Blood lymphocytes automated count (number/volume) 3.5 10*3 1.0-4.0 Blood monocytes automated count (number/volume) 0.6 10*3 0.0-1.0 Automated eosinophil count 0.1 10*3/uL 0.0-0.3 Automated blood basophil count (count/volume) 0.0 10*3/uL 0.0-0.1 PT panel in platelet poor plasma by coagulation assay - 07/25/16 11:20 Prothrombin time (PT) in platelet poor plasma by coagulation assay 12.7 s 12.2-14.7 INR in platelet poor plasma or blood by coagulation assay 1.0 0.8-1.4 Activated partial thromboplastin time (aPTT) in platelet poor plasma bycoagulation assay - 07/25/16 11:20 Activated partial thromboplastin time (aPTT) in platelet poor plasma bycoagulation assay 33 s 24-35 Comprehensive metabolic panel - 07/25/16 11:20 Serum or plasma sodium measurement (moles/volume) 137 mmol/ L 135-145 Serum or plasma potassium measurement (moles/volume) 3.8 mmol/L 3.6-5.0 Serum or plasma chloride measurement (moles/volume) 105 mmol /L 98-107 Carbon dioxide 24 mmol/L 21-32 Serum or plasma anion gap determination (moles/volume) 8 mmol/L 5-14 Serum or plasma urea nitrogen measurement (mass/volume) 10 mg/dL 7-18 Serum or plasma creatinine measurement (mass/volume) 0.61 mg /dL 0.60-1.30 Serum or plasma urea nitrogen/creatinine mass ratio 16 NRG Serum or plasma creatinine measurement with calculation of estimated glomerular filtration rate > NRG Serum or plasma glucose measurement (mass/volume) 110 mg/dL 70-105 Serum or plasma calcium measurement (mass/volume) 9.2 mg/dL 8.5-10.1 Serum or plasma total bilirubin measurement (mass/volume) 0.1 mg/dL 0.1-1.0 Serum or plasma alkaline phosphatase measurement (enzymatic activity/volume) 78 U/L 40-136 Serum or plasma aspartate aminotransferase measurement (enzymatic activity/ volume) 17 U/L 5-34 Serum or plasma alanine aminotransferase measurement (enzymatic activity/volume ) 21 U/L 0-55 Serum or plasma protein measurement (mass/volume) 7.7 g/dL 6.4-8.2 Serum or plasma albumin measurement (mass/volume) 3.5 g/dL 3.2-4.5 Magnesium - 07/25/16 11:20 Magnesium 1.7 mg/dL 1.8-2.4 Serum or plasma creatine kinase measurement (enzymatic activity/volume) - 07/25 11:20 Serum or plasma creatine kinase measurement (enzymatic activity/volume) 27 U/L 29-168 Serum or plasma lithium measurement (moles/volume) - 07/25/16 11:20 BNP level < pg/mL <100.0 Serum or plasma creatine kinase MB measurement (enzymatic activity/volume) - 11:20 Serum or plasma creatine kinase MB measurement (enzymatic activity/volume) 0.3 ng/mL <6.6 Serum or plasma troponin i.cardiac measurement (mass/volume) - 07/25/16 11:20 Serum or plasma troponin i.cardiac measurement (mass/volume) < ng/mL <0.30 Serum or plasma thyrotropin measurement by detection limit <=0.05 miu/l (units/ volume) - 07/25/16 11:20 Serum or plasma thyrotropin measurement by detection limit <=0.05 miu/l (units/ volume) 0.91 u[iU]/mL 0.35-4.94 Serum or plasma amylase measurement (enzymatic activity/volume) - 07/25/16 11: 20 Serum or plasma amylase measurement (enzymatic activity/volume) 17 U/L 25-125 Lipase - 07/25/16 11:20 Lipase 13 U/L 8-78 Complete urinalysis with reflex to culture - 07/25/16 13:34 Urine color determination YELLOW NRG Urine clarity determination SLIGHTLY CLOUDY NRG Urine pH measurement by test strip 6.5 5 -9 Specific gravity of urine by test strip 1.020 1.016-1.022 Urine protein assay by test strip, semi-quantitative 1+ NEGATIVE Urine glucose detection by automated test strip NEGATIVE NEGATIVE Erythrocytes detection in urine sediment by light microscopy NEGATIVE NEGATIVE Urine ketones detection by automated test strip 3+ NEGATIVE Urine nitrite detection by test strip NEGATIVE NEGATIVE Urine total bilirubin detection by test strip NEGATIVE NEGATIVE Urine urobilinogen measurement by automated test strip (mass/volume) 1 mg/dL NORMAL Urine leukocyte esterase detection by dipstick 3+ NEGATIVE Automated urine sediment erythrocyte count by microscopy (number/high power field) NONE NRG Automated urine sediment leukocyte count by microscopy (number/high power field ) [HPF] NRG Bacteria detection in urine sediment by light microscopy MODERATE NRG Squamous epithelial cells detection in urine sediment by light microscopy 10-25 NRG Crystals detection in urine sediment by light microscopy NONE NRG Casts detection in urine sediment by light microscopy NONE NRG Mucus detection in urine sediment by light microscopy SMALL NRG Complete urinalysis with reflex to culture YES NRG Urine drug screening test - 07/25/16 13:34 Urine phencyclidine detection by screening method NEGATIVE NEGATIVE Urine benzodiazepines detection by screening method NEGATIVE NEGATIVE Urine cocaine detection NEGATIVE NEGATIVE Urine amphetamines detection by screening method NEGATIVE NEGATIVE Urine methamphetamine detection by screening method NEGATIVE NEGATIVE Urine cannabinoids detection by screening method NEGATIVE NEGATIVE Urine opiates detection by screening method NEGATIVE NEGATIVE Urine barbiturates detection NEGATIVE NEGATIVE Screening urine tricyclic antidepressants detection NEGATIVE NEGATIVE Urine methadone detection by screening method NEGATIVE NEGATIVE Urine oxycodone detection NEGATIVE NEGATIVE Urine propoxyphene detection NEGATIVE NEGATIVE Bacterial urine culture - 07/25/16 13:34 URINE CULTURE RESULTS <10,000/ML NRG Complete blood count (CBC) with automated white blood cell (WBC) differential - 07/27/16 08:58 Blood leukocytes automated count (number/volume) 11.9 10*3/ uL 4.3-11.0 Blood erythrocytes automated count (number/volume) 4.45 10*6 /uL 4.35-5.85 Venous blood hemoglobin measurement (mass/volume) 11.9 g/dL 11.5-16.0 Blood hematocrit (volume fraction) 36 % 35-52 Automated erythrocyte mean corpuscular volume 82 [foz_us] 80-99 Automated erythrocyte mean corpuscular hemoglobin (mass per erythrocyte) 27 pg 25-34 Automated erythrocyte mean corpuscular hemoglobin concentration measurement ( mass/volume) 33 g/dL 32-36 Automated erythrocyte distribution width ratio 16.7 % 10.0-14.5 Automated blood platelet count (count/volume) 343 10*3/uL 130-400 Automated blood platelet mean volume measurement 9.2 [foz_us ] 7.4-10.4 Automated blood neutrophils/100 leukocytes 73 % 42-75 Automated blood lymphocytes/100 leukocytes 21 % 12-44 Blood monocytes/100 leukocytes 6 % 0-12 Automated blood eosinophils/100 leukocytes 0 % 0-10 Automated blood basophils/100 leukocytes 0 % 0-10 Blood neutrophils automated count (number/volume) 8.8 10*3 1.8-7.8 Blood lymphocytes automated count (number/volume) 2.5 10*3 1.0-4.0 Blood monocytes automated count (number/volume) 0.7 10*3 0.0-1.0 Automated eosinophil count 0.0 10*3/uL 0.0-0.3 Automated blood basophil count (count/volume) 0.0 10*3/uL 0.0-0.1 Comprehensive metabolic panel - 07/27/16 08:58 Serum or plasma sodium measurement (moles/volume) 138 mmol/ L 135-145 Serum or plasma potassium measurement (moles/volume) 3.4 mmol/L 3.6-5.0 Serum or plasma chloride measurement (moles/volume) 106 mmol /L 98-107 Carbon dioxide 23 mmol/L 21-32 Serum or plasma anion gap determination (moles/volume) 9 mmol/L 5-14 Serum or plasma urea nitrogen measurement (mass/volume) 8 mg /dL 7-18 Serum or plasma creatinine measurement (mass/volume) 0.54 mg /dL 0.60-1.30 Serum or plasma urea nitrogen/creatinine mass ratio 15 NRG Serum or plasma creatinine measurement with calculation of estimated glomerular filtration rate > NRG Serum or plasma glucose measurement (mass/volume) 96 mg/dL 70-105 Serum or plasma calcium measurement (mass/volume) 8.8 mg/dL 8.5-10.1 Serum or plasma total bilirubin measurement (mass/volume) 0.8 mg/dL 0.1-1.0 Serum or plasma alkaline phosphatase measurement (enzymatic activity/volume) 113 U/L 40-136 Serum or plasma aspartate aminotransferase measurement (enzymatic activity/ volume) 70 U/L 5-34 Serum or plasma alanine aminotransferase measurement (enzymatic activity/volume ) 78 U/L 0-55 Serum or plasma protein measurement (mass/volume) 7.5 g/dL 6.4-8.2 Serum or plasma albumin measurement (mass/volume) 3.5 g/dL 3.2-4.5 Methicillin resistant Staphylococcus aureus (MRSA) screening culture - 18:31 MRSA SCREEN RESULT MRSA NOT ISOLATED NRG Encounters ACCT No. Visit Date/Time Discharge Status Pt. Type Provider Facility Loc./Unit Complaint [id number] 07/27/2016 12:40:00 2016 10:10:00 DIS Outpatient JESS EM, KRISTIN Alexis [facility] CHOLELITHIASIS/ITIS [id number] 07/25/2016 11:01:00 2016 14:58:00 DIS Emergency JACKIE OLEA DO [facility] ER LIGHTHEADED SOA/CHEST PAIN [id number] 07/19/2016 17:02:00 2016 22:06:00 DIS Emergency KRYSTEN EM, MIGEL Reis [facility] ER VAG BLEEDING/R BREAST/BACK PAIN/13 WKS PREG [id number] 06/29/2016 10:10:00 2016 12:54:00 DIS Emergency ARMANDO PADILLA APRN [facility] ER ABD PAIN SOA 10 WKS PREG [id number] 01/02/2016 07:07:00 2015 11:22:00 DIS Emergency JACKIE OLEA DO [facility] ER UPPER ABD/RIGHT RIB PAIN [id number] 11/02/2014 16:26:00 2014 20:18:00 DIS Emergency JACKIE OLEA DO [facility] ER CHEST PAIN;HEADACHE [id number] 04/18/2014 11:52:00 2014 13:44:00 DIS Emergency ARMANDO PADILLA APRN [facility] ER FACIAL PAIN,VOMITING [id number] 09/06/2016 13:00:00 PEN Preadmit DEBRA MATTHEWS DO [facility] RAD Z34.82
== END 2016-07-19 22:06 | disposition home or self-care (01) ==
LOC: EDUNIT# 16:59 → ER 17:02
DX: O23.591 Infection of other part of genital tract in pregnancy, first trimester (principal); B37.3 Candidiasis of vulva and vagina; O26.891 Other specified pregnancy related conditions, first trimester; O23.41 Unspecified infection of urinary tract in pregnancy, first trimester; R10.2 Pelvic and perineal pain; Z3A.13 13 weeks gestation of pregnancy
CPT/HCPCS: 36415; 81000; 84702; 85007; 85027; 86900; 86901; 87070; 87088; 87210; 87220; 87491; 87591; 96372; 99284

== ENCOUNTER 2016-07-25 10:59 | Emergency (ER) | payer MEDICAID ==
[~2016-07-25] VITALS: Ht 177.8 cm; Wt 130.2 kg
[~2016-07-25 10:59] MED LIST changes: +ACET325T38 PO; +CLIN300C11 PO; +MICO1KIT18 VG
[2016-07-25 11:42] LABS: BASOPHILS % (AUTO) 0 % (0-10); EOSINOPHILS # (AUTO) 0.1 10^3/uL (0.0-0.3); EOSINOPHILS % (AUTO) 0 % (0-10); LYMPHOCYTES # (AUTO) 3.5 X 10^3 (1.0-4.0); LYMPHOCYTES % (AUTO) 25 % (12-44); MEAN CORPUSCULAR HEMOGLOBIN 27 PG (25-34); MEAN CORPUSCULAR HGB CONC 33 G/DL (32-36); MEAN CORPUSCULAR VOLUME 81 FL (80-99); MEAN PLATELET VOLUME 9.3 FL (7.4-10.4); MONOCYTES # (AUTO) 0.6 X 10^3 (0.0-1.0); MONOCYTES % (AUTO) 5 % (0-12); NEUTROPHILS # (AUTO) 9.5 X 10^3 (1.8-7.8); NEUTROPHILS % (AUTO) 69 % (42-75); PLATELET COUNT 329 10^3/uL (130-400); RED BLOOD COUNT 4.57 10^6/uL (4.35-5.85); RED CELL DISTRIBUTION WIDTH 16.4 % (10.0-14.5); WHITE BLOOD COUNT 13.7 10^3/uL (4.3-11.0)
[2016-07-25 11:45] LABS: PROTHROMBIN TIME PATIENT 12.7 SEC (12.2-14.7)
[2016-07-25 11:55] LABS: ALANINE AMINOTRANSFERASE 21 U/L (0-55); ALBUMIN 3.5 G/DL (3.2-4.5); ANION GAP 8 MMOL/L (5-14); ASPARTATE AMINO TRANSFERASE 17 U/L (5-34); BILIRUBIN,TOTAL 0.1 MG/DL (0.1-1.0); BLOOD UREA NITROGEN 10 MG/DL (7-18); BUN/CREATININE RATIO 16; CALCIUM 9.2 MG/DL (8.5-10.1); CARBON DIOXIDE 24 MMOL/L (21-32); CHLORIDE 105 MMOL/L (98-107); CREATINE KINASE 27 U/L (29-168); CREATININE SERUM 0.61 MG/DL (0.60-1.30); GFR ESTIMATED > 60; GLUCOSE 110 MG/DL (70-105); MAGNESIUM 1.7 MG/DL (1.8-2.4); POTASSIUM 3.8 MMOL/L (3.6-5.0); SODIUM 137 MMOL/L (135-145); TOTAL PROTEIN 7.7 G/DL (6.4-8.2)
[2016-07-25 12:15] LABS: TROPONIN I < 0.30 NG/ML (<0.30)
[2016-07-25 12:17] LABS: AMYLASE 17 U/L (25-125); LIPASE 13 U/L (8-78)
--- NOTE | 2016-07-25 13:03 | Diagnostic Imaging Report ---
PROCEDURE: US abdomen complete. TECHNIQUE: Multiple real-time grayscale images were obtained over the abdomen in various projections. INDICATION: Chest and abdominal pain. FINDINGS: The pancreas is obscured by bowel gas. The left hepatic lobe is also obscured. The right hepatic lobe demonstrates no focal mass. Hepatopetal flow in the portal vein is demonstrated. There is suggestion of gallstones and sludge with no significant gallbladder wall thickening. These appear to be lodged in the gallbladder neck area during the scan. The CBD is 6 mm in caliber. The spleen is 10.8 cm in length. The right kidney is 10.9 cm and the left kidney is 13.8 cm in length. No hydronephrosis or focal lesion is identified. No ascites or fluid collection in the abdomen seen. Sonographic Franklin's sign is reportedly negative. The visualized portions of the IVC appear unremarkable. The abdominal aorta is obscured by bowel gas. IMPRESSION: Cholelithiasis. Dictated by: Dictated on workstation # [id number]
[2016-07-25 13:47] LABS: BILIRUBIN,URINE NEGATIVE (NEGATIVE); KETONES,URINE 3+ (NEGATIVE); LEUKOCYTE ESTERASE ,URINE 3+ (NEGATIVE); NITRITE,URINE NEGATIVE (NEGATIVE); PH,URINE 6.5 (5-9); PROTEIN,URINE 1+ (NEGATIVE); UROBILINOGEN,URINE 1 MG/DL (NORMAL)
--- NOTE | 2016-07-25 14:12 | ED Chest Pain ---
General Chief Complaint: Chest Pain Stated Complaint: LIGHTHEADED SOA/CHEST PAIN Nursing Triage Note: PT C/O MID STERNAL CP RADIATING TO THAT BEGAN THIS AM. SHE STATES SHE HAD DIAPHORESIS, DIZZINESS, AND DYSPNEA. PT HAS HX OF ANXIETY. Nursing Sepsis Screen: No Definite Risk Source: patient History of Present Illness Time seen by provider: 11:30 Initial Comments PT ARRIVES VIA POV C/O PAIN IN RIGHT AND MID CHEST AND SLIGHT PAIN IN LEFT CHEST OFF AND ON SINCE Saturday07/19/16. HAS HAD SHORTNESS OF BREATH AND SWEATS NO SWELLING IN LEGS/ FEET OR PAIN IN CALVES NO COUGH, URI SYMPTOMS OR FEVER PT HAD UPPER ABDOMINAL PAIN LAST SATURDAY BUT NONE SINCE PT IS 15 WEEKS NO VAGINAL BLEEDING OR DISCHARGE NO URINARY SYMPTOMS AT THIS TIME, BUT PT IS BEING TREATED FOR UTI WAS HERE ON 07/19/16 AND GIVEN RX'S FOR MICONAZOLE AND CLINDAMYCIN PT HAS AN APPOINTMENT WITH DR. MATTHEWS ON Saturday07/30/16 HAS NOT TAKEN ANYTHING FOR PAIN PT STATES SHE HAS ANXIETY AND THIS FEELS LIKE ANXIETY Allergies and Home Medications Allergies Coded Allergies: No Known Drug Allergies (Unverified , 04/18/14) Home Medications Acetaminophen 325 Mg Tablet, Unknown Dose PO PRN, (Reported) Clindamycin HCl 300 Mg Capsule, 300 MG PO BID, #14 Prescribed by: MIGEL TORRES on 07/19/162135 Miconazole/Skin Cleanser No.17 1 Each Kit, 1 EACH VG HS, #1 Prescribed by: MIGEL TORRES on 07/19/162135 Pnv95/Ferrous Fumarate/FA 1 Each Tablet, 1 EACH PO DAILY, (Reported) Review of Systems Constitutional: diaphoresis, No fever Respiratory: See HPI, Shortness of Air Cardiovascular: See HPI, Chest Pain Gastrointestinal: See HPI (NO SYMPTOMS NOW) Genitourinary: See HPI Musculoskeletal: no symptoms reported Skin: no symptoms reported Psychiatric/Neurological: See HPI, Anxiety Endocrine: No Symptoms Reported Hematologic/Lymphatic: No Symptoms Reported Past Syuhoyq-Ynfvzg-Wrkiqf Hx Patient Social History Alcohol Use: Denies Use Recreational Drug Use: No Smoking Status: Never a Smoker 2nd Hand Smoke Exposure: No Recent Foreign Travel: No Contact w/Someone Who Travel: No Recent Infectious Disease Expo: No Recent Hopitalizations: No Seasonal Allergies Seasonal Allergies: No Surgeries HX Surgeries: Yes (RUPTURED APPENDIX--HOSPITALIZED X 3 WEEKS) Surgeries: Appendectomy Respiratory Hx Respiratory Disorders: No Cardiovascular Hx Cardiac Disorders: No Neurological Hx Neurological Disorders: No Reproductive System : Yes Hx Reproductive Disorders: No Female Reproductive Disorders: Denies Genitourinary Hx Genitourinary Disorders: Yes Genitourinary Disorders: Bladder Infection Gastrointestinal Hx Gastrointestinal Disorders: No Musculoskeletal Hx Musculoskeletal Disorders: No Endocrine Hx Endocrine Disorders: Yes (MORBID OBESITY) HEENT HX ENT Disorders: No Cancer Hx Cancer: No Psychosocial Hx Psychiatric Problems: Yes Behavioral Health Disorders: Anxiety Integumentary HX Skin/Integumentary Disorder: No Blood Transfusions Hx Blood Disorders: No Physical Exam Vital Signs Vital Sign - Last 12Hours 07/25/16 11:00 Temp 97.5 Pulse 80 Resp 23 B/P (MAP) 125/79 Pulse Ox 99 O2 Delivery Room Air Capillary Refill : Less Than 3 Seconds General Appearance: No Apparent Distress, Anxious, Obese, Other (VERY DRAMATIC , MILD HYPER VENTILATION) Neck: Full Range of Motion, Normal Inspection, Non Tender, Supple, No JVD Respiratory: Normal Breath Sounds, No Accessory Muscle Use, No Respiratory Distress, Other (MARKED TENDERNESS TO ENTIRE CHEST AND RUQ--MORE TENDER IN RIGHT AND MID CHEST--PALPATION DRAMATICALLY REPRODUCES PAIN ) Cardiovascular: Regular Rate, Rhythm, No Edema, No JVD, No Murmur, Normal Peripheral Pulses Gastrointestinal: Normal Bowel Sounds, No Organomegaly, No Pulsatile Mass, Soft , Tenderness (RUQ) Extremity: Normal Inspection, No Calf Tenderness, No Pedal Edema Neurologic/Psychiatric: Alert, Oriented x3, No Motor/Sensory 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, 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 Skin: Normal Color, Warm/Dry Progress/Results/Core Measures Results/Orders Lab Results Laboratory Tests Test 07/25/16 11:20 07/25/16 13:34 Range/Units White Blood Count 13.7 H 4.3-11.0 10^3/uL Red Blood Count 4.57 4.35-5.85 10^6/uL Hemoglobin 12.1 11.5-16.0 G/DL Hematocrit 37 35-52 % Mean Corpuscular Volume 81 80-99 FL Mean Corpuscular Hemoglobin 27 25-34 PG Mean Corpuscular Hemoglobin Concent 33 32-36 G/DL Red Cell Distribution Width 16.4 H 10.0-14.5 % Platelet Count 329 130-400 10^3/uL Mean Platelet Volume 9.3 7.4-10.4 FL Neutrophils (%) (Auto) 69 42-75 % Lymphocytes (%) (Auto) 25 12-44 % Monocytes (%) (Auto) 5 0-12 % Eosinophils (%) (Auto) 0 0-10 % Basophils (%) (Auto) 0 0-10 % Neutrophils # (Auto) 9.5 H 1.8-7.8 X 10^3 Lymphocytes # (Auto) 3.5 1.0-4.0 X 10^3 Monocytes # (Auto) 0.6 0.0-1.0 X 10^3 Eosinophils # (Auto) 0.1 0.0-0.3 10^3/uL Basophils # (Auto) 0.0 0.0-0.1 10^3/uL Prothrombin Time 12.7 12.2-14.7 SEC INR Comment 1.0 0.8-1.4 Activated Partial Thromboplast Time 33 24-35 SEC Sodium Level 137 135-145 MMOL/L Potassium Level 3.8 3.6-5.0 MMOL/L Chloride Level 105 98-107 MMOL/L Carbon Dioxide Level 24 21-32 MMOL/L Anion Gap 8 5-14 MMOL/L Blood Urea Nitrogen 10 7-18 MG/DL Creatinine 0.61 0.60-1.30 MG/DL Estimat Glomerular Filtration Rate > 60 BUN/Creatinine Ratio 16 Glucose Level 110 H 70-105 MG/DL Calcium Level 9.2 8.5-10.1 MG/DL Magnesium Level 1.7 L 1.8-2.4 MG/DL Total Bilirubin 0.1 0.1-1.0 MG/DL Aspartate Amino Transf (AST/SGOT) 17 5-34 U/L Alanine Aminotransferase (ALT/SGPT) 21 0-55 U/L Alkaline Phosphatase 78 40-136 U/L Total Creatine Kinase 27 L 29-168 U/L Creatine Kinase MB 0.3 <6.6 NG/ML Troponin I < 0.30 <0.30 NG/ML B-Type Natriuretic Peptide < 10.0 <100.0 PG/ML Total Protein 7.7 6.4-8.2 G/DL Albumin 3.5 3.2-4.5 G/DL Amylase Level 17 L 25-125 U/L Lipase 13 8-78 U/L TSH [place] Testing 0.91 0.35-4.94 UIU/ML Urine Color YELLOW Urine Clarity SLIGHTLY CLOUDY Urine pH 6.5 5-9 Urine Specific [place] 1.020 1.016-1.022 Urine Protein 1+ H NEGATIVE Urine Glucose (UA) NEGATIVE NEGATIVE Urine Ketones 3+ H NEGATIVE Urine Nitrite NEGATIVE NEGATIVE Urine Bilirubin NEGATIVE NEGATIVE Urine Urobilinogen 1 NORMAL MG/DL Urine Leukocyte Esterase 3+ H NEGATIVE Urine RBC (Auto) NEGATIVE NEGATIVE Urine RBC NONE /HPF Urine WBC 5-10 H /HPF Urine Squamous Epithelial Cells 10-25 H /HPF Urine Crystals NONE /LPF Urine Bacteria MODERATE H /HPF Urine Casts NONE /LPF Urine Mucus SMALL H /LPF Urine Culture Indicated YES Urine Opiates Screen NEGATIVE NEGATIVE Urine Oxycodone Screen NEGATIVE NEGATIVE Urine Methadone Screen NEGATIVE NEGATIVE Urine Propoxyphene Screen NEGATIVE NEGATIVE Urine Barbiturates Screen NEGATIVE NEGATIVE Ur Tricyclic Antidepressants Screen NEGATIVE NEGATIVE Urine Phencyclidine Screen NEGATIVE NEGATIVE Urine Amphetamines Screen NEGATIVE NEGATIVE Urine Methamphetamines Screen NEGATIVE NEGATIVE Urine Benzodiazepines Screen NEGATIVE NEGATIVE Urine Cocaine Screen NEGATIVE NEGATIVE Urine Cannabinoids Screen NEGATIVE NEGATIVE Micro Results Microbiology 07/25/16 Urine Culture - Preliminary, Resulted My Orders Orders - JACKIE OLEA DO Ekg Tracing (07/25/16 11:33) Monitor-Rhythm Ecg Trace Only (07/25/16 11:33) BNP (07/25/16 11:33) Cbc With Automated Diff (07/25/16 11:33) Comprehensive Metabolic Panel (07/25/16 11:33) Creatine Kinase (07/25/16 11:33) Creatine Kinase Mb (07/25/16 11:33) Magnesium (07/25/16 11:33) Protime With Inr (07/25/16 11:33) Partial Thromboplastin Time (07/25/16 11:33) Thyroid Analyzer (07/25/16 11:33) Troponin I (07/25/16 11:33) Amylase (07/25/16 11:55) Lipase (07/25/16 11:55) Us Abdomen Complete [id number] (07/25/16 11:55) Drug Screen Stat (Urine) (07/25/16 12:21) Ua Culture If Indicated (07/25/16 12:21) Heart Tones (07/25/16 12:42) Urine Culture (07/25/16 13:34) Vital Signs/I&O Vital Sign - Last 12Hours 07/25/16 07/25/16 07/25/16 11:00 11:00 14:58 Temp 97.5 97.5 Pulse 80 80 Resp 23 23 B/P (MAP) 125/79 Pulse Ox 99 99 O2 Delivery Room Air Room Air Blood Pressure Mean: 94 Progress Note : Progress Note SYMPTOMS RESOLVED DURING ER STAY ECG Initial ECG Impression Time: 11:15 Initial ECG Rate: 80 Initial ECG Rhythm: Normal Sinus Initial ECG Impression: Normal Initial ECG Comparisson: No Previous ECG Available Diagnostic Imaging Comments ABDOMINAL ULTRASOUND--CHOLELITHIASIS, PER RADIOLOGIST REPORT Reviewed: Reviewed by Me Departure Impression Impression: Primary Impression: Chest wall pain Additional Impressions: UTI (urinary tract infection) in in first trimester Cholelithiasis Disposition: 01 HOME, SELF-CARE Condition: Stable Departure-Patient Inst. Referrals: DEBRA MATTHEWS RICHARD A DO (PCP/Family) Primary Care Physician Patient Instructions: Avoiding Infections in , Chest Pain That Is Not Caused by the Heart (DC), Gallstones (DC), - The Fourth Month, Urinary Tract Infection, Adult (DC) Add. Discharge Instructions: LOTS OF CLEAR LIQUIDS--NO COFFEE, POP OR TEA LOW FAT DIET--LESS THAN 20 GRAMS OF FAT A DAY TYLENOL 2 PILLS 4 TIMES A DAY FOR PAIN CONTINUE YOUR CURRENT ANTIBIOTICS FOLLOW UP WITH DR. MATTHEWS ON SATURDAY SCHEDULED All discharge instructions reviewed with patient and/or family. Voiced understanding. JACKIE OLEA DO Jul 25, 2016 14:12
[2016-07-25 14:58] VITALS: BP 125/79
== END 2016-07-25 14:58 | disposition home or self-care (01) ==
LOC: EDUNIT# 10:59 → ER 11:01
DX: R07.89 Other chest pain (principal); O23.41 Unspecified infection of urinary tract in pregnancy, first trimester; O99.611 Diseases of the digestive system complicating pregnancy, first trimester; K80.20 Calculus of gallbladder without cholecystitis without obstruction; O99.211 Obesity complicating pregnancy, first trimester; Z3A.13 13 weeks gestation of pregnancy
CPT/HCPCS: 36415; 76700; 80053; 80306; 81000; 82150; 82550; 82553; 83690; 83735; 83880; 84443; 84484; 85025; 85610; 85730; 87088; 93005; 93041

== ENCOUNTER 2016-07-27 08:18 | Day surgery (SDC) | payer MEDICAID ==
[~2016-07-27] VITALS: Ht 177.8 cm; Wt 131.1 kg
[2016-07-27] MEDS ORDERED: CEPH500C (08:37)
[2016-07-27 09:04] LABS: BASOPHILS % (AUTO) 0 % (0-10); EOSINOPHILS % (AUTO) 0 % (0-10); LYMPHOCYTES # (AUTO) 2.5 X 10^3 (1.0-4.0); LYMPHOCYTES % (AUTO) 21 % (12-44); MEAN CORPUSCULAR HEMOGLOBIN 27 PG (25-34); MEAN CORPUSCULAR HGB CONC 33 G/DL (32-36); MEAN CORPUSCULAR VOLUME 82 FL (80-99); MEAN PLATELET VOLUME 9.2 FL (7.4-10.4); MONOCYTES # (AUTO) 0.7 X 10^3 (0.0-1.0); MONOCYTES % (AUTO) 6 % (0-12); NEUTROPHILS # (AUTO) 8.8 X 10^3 (1.8-7.8); NEUTROPHILS % (AUTO) 73 % (42-75); PLATELET COUNT 343 10^3/uL (130-400); RED BLOOD COUNT 4.45 10^6/uL (4.35-5.85); RED CELL DISTRIBUTION WIDTH 16.7 % (10.0-14.5); WHITE BLOOD COUNT 11.9 10^3/uL (4.3-11.0)
[2016-07-27 09:33] LABS: ALANINE AMINOTRANSFERASE 78 U/L (0-55); ALBUMIN 3.5 G/DL (3.2-4.5); ANION GAP 9 MMOL/L (5-14); ASPARTATE AMINO TRANSFERASE 70 U/L (5-34); BILIRUBIN,TOTAL 0.8 MG/DL (0.1-1.0); BLOOD UREA NITROGEN 8 MG/DL (7-18); BUN/CREATININE RATIO 15; CALCIUM 8.8 MG/DL (8.5-10.1); CARBON DIOXIDE 23 MMOL/L (21-32); CHLORIDE 106 MMOL/L (98-107); CREATININE SERUM 0.54 MG/DL (0.60-1.30); GFR ESTIMATED > 60; GLUCOSE 96 MG/DL (70-105); POTASSIUM 3.4 MMOL/L (3.6-5.0); SODIUM 138 MMOL/L (135-145); TOTAL PROTEIN 7.5 G/DL (6.4-8.2)
[2016-07-27] MEDS: NS IV 1000 ML 1,000 ML IV SCH ×2 (09:43→19:45)
[2016-07-27] MEDS ORDERED: ONDANSETRON 4 MG/2 ML (SDV) Z0FRAN IVP ONE (09:45)
--- NOTE | 2016-07-27 11:20 | ED Abdominal Pain ---
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 ALSO COMPLAINS OF EPIGASTRIC PAIN AND HAS A HX OF GALLSTONES. Sepsis Screen: No Definite Risk Source of Information: Patient Exam Limitations: No Limitations History of Present Illness Time Seen By Provider: 10:45 Initial Comments The patient is a 26-year-old female who presents with right lateral chest pain and persistent nausea and vomiting. She reports she was awake most of the night with this discomfort. She was here 2 days ago and workup included a pelvic sonogram and an abdominal sonogram. The abdominal sonogram suggested possible gallstones and sludge. The gallbladder wall was stated to be normal in thickness. She describes pain in the area of the anterior and mid axillary line and radiating upward. She hadn't had vomiting until the last 2 days. She has not been on any Zofran at this point. She had one child previously and did not have the nausea of . Timing/Duration: Other (3 weeks) Allergies and Home Medications Allergies Coded Allergies: No Known Drug Allergies (Unverified , 04/18/14) Home Medications Cephalexin 500 Mg Capsule, #21 (Reported) Pnv95/Ferrous Fumarate/FA 1 Each Tablet, 1 EACH PO DAILY, (Reported) Review of Systems Constitutional: see HPI EENTM: No Symptoms Reported Respiratory: No Symptoms Reported Cardiovascular: No Symptoms Reported Gastrointestinal: Abdominal Pain, Nausea, Poor Appetite, Vomiting Genitourinary: No Symptoms Reported Musculoskeletal: muscle pain Skin: no symptoms reported Psychiatric/Neurological: No Symptoms Reported Endocrine: No Symptoms Reported Past Pucihkv-Jemard-Zejzjt Hx Patient Social History 2nd Hand Smoke Exposure: No Recent Foreign Travel: No Contact w/Someone Who Travel: No Recent Infectious Disease Expo: No Recent Hopitalizations: No Seasonal Allergies Seasonal Allergies: No Surgeries HX Surgeries: Yes (RUPTURED APPENDIX--HOSPITALIZED X 3 WEEKS) Surgeries: Appendectomy Respiratory Hx Respiratory Disorders: No Cardiovascular Hx Cardiac Disorders: No Neurological Hx Neurological Disorders: No Reproductive System Hx Reproductive Disorders: No Female Reproductive Disorders: 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 Genitourinary Hx Genitourinary Disorders: Yes Genitourinary Disorders: Bladder Infection Gastrointestinal Hx Gastrointestinal Disorders: No Musculoskeletal Hx Musculoskeletal Disorders: No Endocrine Hx Endocrine Disorders: Yes (MORBID OBESITY) HEENT HX ENT Disorders: No Cancer Hx Cancer: No Psychosocial Hx Psychiatric Problems: Yes Behavioral Health Disorders: Anxiety Integumentary HX Skin/Integumentary Disorder: No Blood Transfusions Hx Blood Disorders: No Physical Exam Vital Signs VS - Last 72 Hours, by Label 07/27/16 08:25 Temp 98.0 Pulse 94 Resp 16 B/P (MAP) 119/83 Pulse Ox 98 Capillary Refill : Less Than 3 Seconds General Appearance: mild distress, moderate distress HEENT: normal ENT inspection Neck: full range of motion Respiratory: chest non-tender, lungs clear, normal breath sounds, no respiratory distress, no accessory muscle use Cardiovascular: normal peripheral pulses, regular rate, rhythm, no edema, no gallop, no JVD, no murmur Gastrointestinal: other (mild tenderness right upper quadrant) Extremities: normal range of motion, non-tender, normal inspection, no pedal edema, no calf tenderness, normal capillary refill, pelvis stable 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, no motor/sensory deficits, alert, normal mood/affect, oriented x 3 Skin: normal color, warm/dry Lymphatic: no adenopathy Progress/Results/Core Measures Results/Orders Lab Results Laboratory Tests Test 07/27/16 08:58 Range/Units White Blood Count 11.9 H 4.3-11.0 10^3/uL Red Blood Count 4.45 4.35-5.85 10^6/uL Hemoglobin 11.9 11.5-16.0 G/DL Hematocrit 36 35-52 % Mean Corpuscular Volume 82 80-99 FL Mean Corpuscular Hemoglobin 27 25-34 PG Mean Corpuscular Hemoglobin Concent 33 32-36 G/DL Red Cell Distribution Width 16.7 H 10.0-14.5 % Platelet Count 343 130-400 10^3/uL Mean Platelet Volume 9.2 7.4-10.4 FL Neutrophils (%) (Auto) 73 42-75 % Lymphocytes (%) (Auto) 21 12-44 % Monocytes (%) (Auto) 6 0-12 % Eosinophils (%) (Auto) 0 0-10 % Basophils (%) (Auto) 0 0-10 % Neutrophils # (Auto) 8.8 H 1.8-7.8 X 10^3 Lymphocytes # (Auto) 2.5 1.0-4.0 X 10^3 Monocytes # (Auto) 0.7 0.0-1.0 X 10^3 Eosinophils # (Auto) 0.0 0.0-0.3 10^3/uL Basophils # (Auto) 0.0 0.0-0.1 10^3/uL Sodium Level 138 135-145 MMOL/L Potassium Level 3.4 L 3.6-5.0 MMOL/L Chloride Level 106 98-107 MMOL/L Carbon Dioxide Level 23 21-32 MMOL/L Anion Gap 9 5-14 MMOL/L Blood Urea Nitrogen 8 7-18 MG/DL Creatinine 0.54 L 0.60-1.30 MG/DL Estimat Glomerular Filtration Rate > 60 BUN/Creatinine Ratio 15 Glucose Level 96 70-105 MG/DL Calcium Level 8.8 8.5-10.1 MG/DL Total Bilirubin 0.8 0.1-1.0 MG/DL Aspartate Amino Transf (AST/SGOT) 70 H 5-34 U/L Alanine Aminotransferase (ALT/SGPT) 78 H 0-55 U/L Alkaline Phosphatase 113 40-136 U/L Total Protein 7.5 6.4-8.2 G/DL Albumin 3.5 3.2-4.5 G/DL My Orders Orders - ENMA COSTA MD Cbc With Automated Diff (07/27/16 08:47) Comprehensive Metabolic Panel (07/27/16 08:47) Ua Culture If Indicated (07/27/16 08:47) Ns Iv 1000 Ml (Sodium Chloride 0.9%) (07/27/16 09:45) Ondansetron Injection (Zofran Injectio (07/27/16 09:45) Medications Given in ED Current Medications Medications Dose Ordered Sig/Esme Route Start Time Stop Time Status Last Admin Dose Admin Ondansetron HCl 8 mg ONCE ONCE IVP 07/27/16 09:45 07/27/16 09:46 DC 07/27/16 09:43 4 MG Vital Signs/I&O Vital Sign - Last 12Hours 07/27/16 08:25 Temp 98.0 Pulse 94 Resp 16 B/P (MAP) 119/83 Pulse Ox 98 Blood Pressure Mean: 95 Departure Communication Progress Notes [address] Marquis, surgeon on-call 1136 after discussing the problem more specifically with the patient I believe that she is been suffering from this right upper quadrant pain since her first visit on 3/21. I went down to sonography and reviewed the films with the with the highway maintenance worker's and we believe that these are rather clearly stones and not possibly. Accordingly I'm discussing this with Dr. Marquis again. 1215 Dr. Marquis has seen the patient and will plan to perform cholecystectomy later this afternoon. Impression Impression: Primary Impression: subacute cholecystitis Disposition: ADMITTED INPATIENT Decision to Admit Reason: Admit from ER (General) Decision to Admit/Date: Jul 27, 2016 Time/Decision to Admit Time: 12:34 Departure-Patient Inst. Referrals: ALEJANDRO RENEE DO (PCP/Family) Primary Care Physician ENMA COSTA MD Jul 27, 2016 11:20
--- NOTE | 2016-07-27 13:46 | History & Physicial ---
History of Present Illness History of Present Illness Reason for visit/HPI persistent right upper quadrant pain, nausea and vomiting for almost 10 days. Date of Admission 07/27/16 I consulted on this patient on 07/27/16 13:42 Attending Physician Daniella Admitting Physician daniella Consult Allergies and Home Medications Allergies Coded Allergies: No Known Drug Allergies (Unverified , 04/18/14) Home Medications Cephalexin 500 Mg Capsule, #21 (Reported) Pnv95/Ferrous Fumarate/FA 1 Each Tablet, 1 EACH PO DAILY, (Reported) Past Fauiprg-Vmftaa-Iywoyf Hx Patient Social History Marrital Status: Number of Children: 1 Number of living children: 1 Employed/Student: employed Alcohol Use: Denies Use Smoking Status: Never a Smoker 2nd Hand Smoke Exposure: No Recent Foreign Travel: No Contact w/other who traveled: No Recent Hopitalizations: No Recent Infectious Disease Expo: No Seasonal Allergies Seasonal Allergies: No Surgeries HX Surgeries: Yes (RUPTURED APPENDIX--HOSPITALIZED X 3 WEEKS) Surgeries: Appendectomy Respiratory Hx Respiratory Disorders: No Cardiovascular Hx Cardiovascular Disorders: No Neurological Hx Neurological Disorders: No Reproductive System : Yes Hx Reproductive Disorders: No Female Reproductive Disorders: Denies Genitourinary Hx Genitourinary Disorders: Yes Genitourinary Disorders: Bladder Infection Gastrointestinal Hx Gastrointestinal Disorders: Yes Gastrointestinal Disorders: Gall Bladder Disease Musculoskeletal Hx Musculoskeletal Disorders: No Endocrine Hx Endocrine Disorders: No (MORBID OBESITY) HEENT HX ENT Disorders: No Cancer Hx Cancer: No Psychosocial Hx Psychiatric Problems: No Behavioral Health Disorders: Anxiety Integumentary HX Skin/Integumentary Disorder: No Blood Transfusions Hx Blood Disorders: No Family Medical History Significant Family History: No Pertinent Family Hx EENTM: see HPI Respiratory: no symptoms reported Cardiovascular: no symptoms reported Gastrointestinal: RUQ, abdominal pain (RUQ), loss of appetite, nausea, vomiting Genitourinary: dysuria : Yes Musculoskeletal: no symptoms reported Skin: no symptoms reported Psychiatric/Neurological: No Symptoms Reported Physical Exam Vital Signs Vital Sign - Last 12Hours 07/27/16 08:25 Temp 98.0 Pulse 94 Resp 16 B/P (MAP) 119/83 Pulse Ox 98 Capillary Refill : Less Than 3 Seconds General Appearance: Mild Distress HEENT: PERRL/EOMI Neck: Normal Inspection Respiratory: Lungs Clear Cardiovascular: Regular Rate, Rhythm Gastrointestinal: Tenderness Back: Normal Inspection Extremity: Normal Capillary Refill Neurologic/Psychiatric: Alert, Oriented x3 Skin: Warm/Dry Lymphatic: No Adenopathy Comments tender right upper quadrant. Subumbilical scar from laparoscopic appendectomy. No incisional hernia Assessment/Plan Assessment and Plan lady with symptomatic gallstones. Slight elevation of white cell Slight elevation of transaminases, bilirubin and alkaline phosphatase being normal. Second trimester at 13 weeks. Due to her symptoms, she is being admitted to receive antiemetics and for correction of dehydration. Reasonable to this plan cholecystectomy. Risk of miscarriage and loss of the fetus discussed urine though the risk is less during second for Mr. Operative details discussed. Problems: Admission Diagnosis gallstones. KRISTIN MERCADO MD Jul 27, 2016 13:46
[2016-07-27 14:00] VITALS: BP 105/70
[2016-07-27] MEDS ORDERED: ACET-93 PO (14:12)
[2016-07-27] MEDS ORDERED: CLIN150C17 PO (14:12)
[2016-07-27] MEDS ORDERED: PNV11TAB5 PO (14:12)
[2016-07-27] MEDS ORDERED: NS IV 1000 ML 1,000 ML IV SCH (14:15)
[2016-07-27 15:35] VITALS: BP 104/70
[2016-07-27 19:45] VITALS: BP 114/74
[2016-07-28] VITALS: BP 112/73
[2016-07-28] MEDS: NS IV 1000 ML 1,000 ML IV SCH ×2 (00:29→10:51)
[2016-07-28] MEDS: ACETAMINOPHEN 500 MG TAB (TYLENOL) PO PRN ×2 (00:51→12:13)
[2016-07-28 04:10] VITALS: BP 98/65
[2016-07-28 08:00] VITALS: BP 114/76
[2016-07-28 11:47] VITALS: BP 109/75
[2016-07-28] MEDS: ONDANSETRON 8 MG (ZOFRAN) ORAL DISSOLVE TAB PO PRN (12:14)
--- NOTE | 2016-07-28 12:33 | Progress Note (SOAP) ---
Subjective Subjective/Events-last exam substernal and right upper quadrant pain radiating to the back continue. No nausea. Tolerating clear liquids Review of Systems General: No Chills, No Night Sweats, No Fatigue, No Malaise HEENT: No Head Aches, No Eye Pain, No Ear Pain, No Dysphasia, No Sinus Congestion, No Post Nasal Drip, No Sore Throat Pulmonary: No Dyspnea, No Cough, No Pleuritic Chest Pain Cardiovascular: Chest Pain Gastrointestinal: Abdominal Pain Genitourinary: No Dysuria, No Frequency, No Incontinence, No Hematuria, No Retention Musculoskeletal: No: arm pain, back pain, foot pain, hand pain, leg pain, neck pain, other, shoulder pain Neurological: No: Change in speech, Confusion, Incoordination, Numbness, Other , Seizures, Weakness Objective Exam Vital Signs Date Time Temp Pulse Resp B/P (MAP) Pulse Ox O2 Delivery O2 Flow Rate FiO2 07/28/16 11:47 98.5 75 18 109/75 98 Room Air 07/28/16 08:00 96.9 73 18 114/76 97 Room Air 07/28/16 04:10 98.6 86 18 98/65 97 Room Air 07/28/16 00:00 97.2 77 17 112/73 95 Room Air 07/27/16 20:35 Room Air 07/27/16 19:45 98.1 73 17 114/74 95 Room Air 07/27/16 15:35 97.2 69 18 104/70 99 Room Air 07/27/16 14:57 97 07/27/16 14:00 97.7 78 18 105/70 97 Room Air 07/27/16 14:00 79 16 98 I & O 07/28/16 07:00 Intake Total 1800 ml Output Total 575 ml Balance 1225 ml Capillary Refill : Less Than 3 Seconds General Appearance: Anxious, Mild Distress HEENT: PERRL/EOMI Neck: Normal Inspection Respiratory: Lungs Clear Cardiovascular: Regular Rate, Rhythm Gastrointestinal: non tender, soft Neurologic/Psychiatric: Alert, Oriented x3 Skin: Warm/Dry Other comments Franklin's sign negative Assessment/Plan Assessment/Plan Assess & Plan/Chief Complaint lady with symptomatic gallstones. Second trimester . Will advance diet slowly and cholecystomy scheduled for Saturday Final Diagnosis gallstones. Second to Mr. Clinical Quality Measures DVT/VTE Risk/Contraindication: Risk Factor Score Per Nursin RFS Level Per Nursing on Admit: 1=Low/No VTE PPX KRISTIN MERCADO MD Jul 28, 2016 12:33 pm
[2016-07-28] MEDS: D5 1/2 NS W/KCL 20 MEQ/L 1,000 ML IV SCH ×2 (13:48→23:54)
[2016-07-28] MEDS: ANTACID SUSP 30 ML UDC (MYLANTA) PO PRN (13:49)
[2016-07-28 15:55] VITALS: BP 110/74
[2016-07-28 19:30] VITALS: BP 109/64
[2016-07-29] VITALS: BP 94/61
[2016-07-29] MEDS: ACETAMINOPHEN 500 MG TAB (TYLENOL) PO PRN ×2 (03:58→22:54)
[2016-07-29] MEDS: ONDANSETRON 8 MG (ZOFRAN) ORAL DISSOLVE TAB PO PRN ×3 (03:58→22:55)
[2016-07-29 08:00] VITALS: BP 105/65
[2016-07-29] MEDS: ANTACID SUSP 30 ML UDC (MYLANTA) PO PRN (08:17)
[2016-07-29] MEDS: D5 1/2 NS W/KCL 20 MEQ/L 1,000 ML IV SCH ×2 (09:53→19:06)
--- NOTE | 2016-07-29 11:35 | Progress Note (SOAP) ---
Subjective Subjective/Events-last exam intermittent nausea and right upper quadrant abdominal pain. Substernal pain resolved. Vital signs stable. Cholecystomy screening for tomorrow Review of Systems General: No Chills, No Night Sweats, No Fatigue, No Malaise HEENT: No Head Aches, No Eye Pain, No Ear Pain, No Dysphasia, No Sinus Congestion, No Post Nasal Drip, No Sore Throat Pulmonary: No Dyspnea, No Cough, No Pleuritic Chest Pain Cardiovascular: No: Chest Pain, Edema, Lt Headedness, Orthopnea, Palpitations, Paroxysmal Noc. Dyspnea Gastrointestinal: Abdominal Pain, Nausea Genitourinary: No Dysuria, No Frequency, No Incontinence, No Hematuria, No Retention Musculoskeletal: No: arm pain, back pain, foot pain, hand pain, leg pain, neck pain, other, shoulder pain Neurological: No: Change in speech, Confusion, Incoordination, Numbness, Other , Seizures, Weakness Objective Exam Vital Signs Date Time Temp Pulse Resp B/P (MAP) Pulse Ox O2 Delivery O2 Flow Rate FiO2 07/29/16 08:00 97.7 72 18 105/65 96 Room Air 07/29/16 00:00 97.2 81 20 94/61 98 Room Air 07/28/16 20:40 Room Air 07/28/16 19:30 97.8 82 16 109/64 98 07/28/16 15:55 98.6 94 16 110/74 98 07/28/16 11:47 98.5 75 18 109/75 98 Room Air I & O 07/29/16 07:00 Intake Total 2290 ml Output Total 700 ml Balance 1590 ml Capillary Refill : Less Than 3 Seconds General Appearance: No Apparent Distress HEENT: TMs Normal Neck: Full Range of Motion Respiratory: Lungs Clear Cardiovascular: Regular Rate, Rhythm Gastrointestinal: non tender, soft Extremity: Normal Capillary Refill Neurologic/Psychiatric: Alert, Oriented x3 Skin: Normal Color, Warm/Dry Assessment/Plan Assessment/Plan Assess & Plan/Chief Complaint lady with symptomatic gallstones. Second trimester . Will advance diet slowly and cholecystomy scheduled for Saturday name with symptomatically gallstones. Second dose of . Cholecystomy scheduled for tomorrow Final Diagnosis gallstones. Clinical Quality Measures DVT/VTE Risk/Contraindication: Risk Factor Score Per Nursin RFS Level Per Nursing on Admit: 1=Low/No VTE PPX KRISTIN MERCADO MD Jul 29, 2016 11:35 am
[2016-07-29 16:00] VITALS: BP 104/70
[2016-07-29 23:22] VITALS: BP 117/74
[2016-07-30] MEDS ORDERED: ANTACID SUSP 30 ML UDC (MYLANTA) ONE (00:20)
[2016-07-30] MEDS: ANTACID SUSP 30 ML UDC (MYLANTA) PO PRN (00:25)
[2016-07-30] MEDS: D5 1/2 NS W/KCL 20 MEQ/L 1,000 ML IV SCH ×2 (05:21→17:20)
[2016-07-30 08:00] VITALS: BP 105/70
[2016-07-30] MEDS ORDERED: BUP/EPI 0.25% 1:200,000 (MARCAINE) 30 ML VIAL ONE (12:15)
[2016-07-30] MEDS ORDERED: metroNIDAZOLE 500MG/100ML IVPB 100 ML ONE (12:37)
[2016-07-30] MEDS ORDERED: ceFAZolin 1,000 MG (ANCEF) VIAL ONE (12:37)
[2016-07-30] MEDS ORDERED: NS (IVPB) 50 ML ONE (12:37)
[2016-07-30] MEDS: LACTATED RINGERS 1,000 ML IV PRN ×2 (12:43→13:30)
[2016-07-30] MEDS ORDERED: fentaNYL INJECTION 100 MCG/2 ML AMP ONE ×4 (12:46→15:31)
[2016-07-30] MEDS ORDERED: LIDOCAINE PF 2% 10 ML (XYLOCAINE) AMP ONE (12:46)
[2016-07-30] MEDS ORDERED: SEVOFLURANE (ULTANE) 15 ML INHAL SOLN ONE ×7 (12:46→14:43)
[2016-07-30] MEDS ORDERED: proPOfol 200 MG/20 ML (DIPRIVAN) VIAL IV ONE (12:46)
[2016-07-30] MEDS ORDERED: LACTATED RINGERS 1,000 ML IV ONE (12:46)
[2016-07-30] MEDS ORDERED: ceFAZolin INJECTION 1,000 MG in NS (IVPB) 50 ML IV NR (13:00)
[2016-07-30] MEDS ORDERED: metroNIDAZOLE 500MG/100ML IVPB 100 ML IV NR (13:00)
[2016-07-30] MEDS ORDERED: ONDANSETRON 4 MG/2 ML (SDV) Z0FRAN ONE (13:55)
[2016-07-30] MEDS ORDERED: GLYCOPYRROLATE 0.2 MG/ML (ROBINUL) 2 ML VIAL ONE (14:34)
[2016-07-30] MEDS ORDERED: NEOSTIGMINE (BLOXIVERZ ) 1 MG/1ML 10 ML VIAL ONE (14:34)
[2016-07-30] MEDS ORDERED: ROCURONIUM 50 MG/5 ML (ZEMURON) VIAL IV ONE (14:36)
--- NOTE | 2016-07-30 14:43 | Progress Note-Post Operative ---
Post-Operative Progess Note Surgeon (s)/Podiatrist Assistant (s) Surgeon KRISTNI MERCADO MD Podiatrist Assistant: Ashly Blanca Pre-Operative Diagnosis Gallstones Post-Operative Diagnosis 1.Gallstones 2.Acute cholecystitis Post-Op Procedure Note Date of Procedure: Jul 30, 2016 Name of Procedure Performed: Robotic assisted cholecystectomy Description of the Procedure: See op note Findings of the Procedure Acutely inflamed GB Anesthesia Type GA Estimated blood loss (mL): Minimal Specimen(s) collected/removed Gallbladder KRISTIN MERCADO MD Jul 30, 2016 2:43 pm
[2016-07-30] MEDS ORDERED: HYDROcodone/APAP 5 MG/325 MG (LORTAB) TAB PO PRN (14:45)
[2016-07-30] MEDS ORDERED: fentaNYL INJECTION 100 MCG/2 ML AMP IVP PRN (14:45)
[2016-07-30] MEDS ORDERED: HYDR-3812 PO (14:46)
--- NOTE | 2016-07-30 14:47 | Discharge Inst-Simple/Standard ---
Discharge Inst-Standard Discharge Medications New, Converted or Re-Newed RX: RX on Chart Patient Instructions/Follow Up Plan of Care/Instructions/FU: Dressings off in am. Incentive spirometry. F/U in 2 weeks Activity as Tolerated: Yes Discharge Diet: No Restrictions KRISTIN MERCADO MD Jul 30, 2016 2:47 pm
[2016-07-30] MEDS ORDERED: ONDANSETRON 4 MG/2 ML (SDV) Z0FRAN IVP PRN (15:00)
[2016-07-30] MEDS: fentaNYL INJECTION 100 MCG/2 ML AMP IVP PRN ×2 (15:10→15:30)
[2016-07-30 16:15] VITALS: BP 117/71
[2016-07-31] VITALS: BP 116/61
[2016-07-31] MEDS: ACETAMINOPHEN 500 MG TAB (TYLENOL) PO PRN ×2 (01:55→10:09)
[2016-07-31] MEDS: D5 1/2 NS W/KCL 20 MEQ/L 1,000 ML IV SCH (01:56)
[2016-07-31 04:50] VITALS: BP 122/63
[2016-07-31 08:00] VITALS: BP 117/60
--- NOTE | 2016-07-31 14:10 | Diagnostic Imaging Report ---
PROCEDURE: US OB SINGLE FETUS <14 WKS. TECHNIQUE: Multiple real-time grayscale images were obtained over the gravid uterus in various projections. INDICATION: No heart rate detected on exam. Status post cholecystectomy. FINDINGS: There is an intrauterine with heart rate at 156 beats per second. The placenta is anterior. No placenta previa. The growth parameters are all around 14 weeks and 6 days consistent with the gestational age determined on prior exam of 06/29/2016 of 14 weeks and 4 days. IMPRESSION: Live intrauterine . Appropriate interval growth. Dictated by: Dictated on workstation # [id number]
--- NOTE | 2016-07-31 15:18 | Anesthesia-General Post-Op ---
General Patient Condition Mental Status/LOC: Same as Preop Cardiovascular: Satisfactory Nausea/Vomiting: Absent Respiratory: Satisfactory Pain: Controlled Complications: Absent Post Op Complications Complications None Follow Up Care/Instructions Patient Instructions None needed. Anesthesia/Patient Condition Patient Condition Patient is doing well, no complaints, stable vital signs, no apparent adverse anesthesia problems. No complications reported per nursing. D/C home per [facility] Criteria: Yes VASU MARROQUIN CRNA Jul 31, 2016 15:18
--- NOTE | 2016-08-01 08:22 | OPERATIVE REPORT ---
PROCEDURE PHYSICIAN: KRISTIN MERCADO DATE OF PROCEDURE: 07/30/2016 PREOPERATIVE DIAGNOSIS: Gallstones POSTOPERATIVE DIAGNOSIS: 1. Gallstones. 2. Acute cholecystitis. OPERATION: Robotic assisted cholecystectomy. SURGEON: Benitez ANESTHESIA: General anesthesia. BLOOD LOSS: Minimal FLUIDS: 1600 cc Crystalloids TYPE OF WOUND: Type III (contaminant wound) INDICATION OF PROCEDURE: This lady, who is 13 weeks , presented with severe symptoms due to gallstones. Following intravenous fluid management and management of her nausea, she was offered cholecystectomy with minimally invasive technique, using robotic assistance. Informed consent was obtained after reviewing the operative details and highlighting the risk of loss and complications of bile leak. DESCRIPTION OF PROCEDURE: She was placed on the operative table and general anesthesia induced using an endotracheal tube. A gram of Ancef and 500 mg of Flagyl were administered intravenously as a prophylaxis against wound infection. Sequential compression devices were placed around her legs, to minimize the risk of venous thrombosis. Abdomen was prepared and draped in the usual sterile manner. Pneumoperitoneum was established using a Veress needle introduced over the supraumbilical region. A transverse incision was made and a 12 mm trocar placed. Intraabdominal pressure was maintained at 50 mmHg. Anatomy was visualized using a 30 degree high definition laparoscope associated with da Tylor system. Gallbladder was acutely inflamed. Under direct view, I placed an 8 mm cannula over each side of the abdomen, followed by a 5 mm trocar over the left upper quadrant. The patient was then turned in reverse Trendelenburg position with the right side tilted up. The robotic system was then docked in place. The fundus of the gallbladder was retracted cephalad and the infundibulum grasped with Cadiere forceps. Thickened tissue around the neck of the gallbladder was incised using hook cautery, delineating the cystic duct and artery. Both were divided between locking clips. Cholecystectomy was then completed using the hook cautery itself. Subhepatic space was then irrigated with saline and the gallbladder placed in an Endo catch bag, to be removed via the supraumbilical trocar site. The fascia over this incision was closed using number 1 Vicryl using the Endo close device. Subcutaneous tissue over the supraumbilical incision was closed using 3-0 Vicryl. Skin incisions were closed using 4-0 Vicryl, in a subcuticular fashion. 0.25% Marcaine with epinephrine was infiltrated along the incisions, both pre-emptive and at the conclusion of the operation. She tolerated the procedure well and was extubated in the operating room and taken to the recovery in a stable condition. [place], sponges and instruments were correct at the end of the operation. Job ID: [id number] Dictated Date: 07/30/2016 14:41:00 Branch Controller Date: 08/01/2016 07:59:21 / livia CAMACHO
--- NOTE | 2016-08-03 10:35 | DISCHARGE SUMMARY ---
DATE OF SERVICE: 07/31/2016 DIAGNOSES: 1. Gallstones. 2. Acute cholecystitis. 3. Mid-trimester . HISTORY OF PRESENT ILLNESS: This patient, who is 13-weeks , presented with symptomatic gallstones. Following management for nausea and the associated dehydration, she underwent cholecystectomy using minimally invasive technique with robotic assistance. Findings of early acute cholecystitis were discovered. She has since made a satisfactory recovery. She underwent a formal ultrasound of the fetus, which was found to be viable with adequate heart tones at the time of discharge. She will follow up with her celery wrapper, Dr. Cornejo, in 2-3 days and with me in about 1 week. Job ID: [id number] DocumentID: [id number] Dictated Date: 08/03/2016 08:32:21 Batch Operator Date: 08/03/2016 10:34:42 Dictated By: KRISTIN MERCADO MD
== END 2016-07-31 10:10 | disposition home or self-care (01) ==
LOC: EDUNIT# 08:18 → ER 08:22 → 4TH 12:40 → SDC 12:40 → ENPENDDIS 07-31 10:00 → SDC 07-31 10:10
PROVIDERS: ATTEND Surgery
DX: O99.611 Diseases of the digestive system complicating pregnancy, first trimester (principal); K80.00 Calculus of gallbladder with acute cholecystitis without obstruction; O99.89 Other specified diseases and conditions complicating pregnancy, childbirth and the puerperium; E86.0 Dehydration; O99.211 Obesity complicating pregnancy, first trimester; E66.01 Morbid (severe) obesity due to excess calories; Z68.41 Body mass index [BMI] 40.0-44.9, adult; Z3A.13 13 weeks gestation of pregnancy
CPT/HCPCS: 36415; 80053; 85025; 87081; 88304; 96374

== ENCOUNTER → 2016-09-06 | Outpatient (CLI) | payer MEDICAID ==
[~2016-09-06] MED LIST changes: +ACET-93 PO; +CEPH500C; +CLIN150C17 PO; +HYDR-3812 PO; +PNV11TAB5 PO
--- NOTE | 2016-09-06 15:27 | Diagnostic Imaging Report ---
INDICATION: survey. TECHNIQUE: OB sonography performed in the routine fashion with transabdominal views and compared to prior study of 07/30/2016. FINDINGS: A single live intrauterine fetus is seen measuring 20 weeks 1 day in size with normal interval growth since the prior study. Amniotic fluid is qualitatively normal. Placenta is anterior with no evidence of previa. cardiac activity is present although rate was not documented. survey was limited due to position and body habitus. Normal appearing kidneys and bladder and stomach were seen. Normal appearing cord insertion was seen. The spine and four-chamber heart and three-vessel cord were not well visualized. Intracranial structures are also not well visualized. The fetus is in breech presentation at this time. Biometrical measurements are as follows: Biparietal 4.5 cm, age 49 weeks 6 days. Head circumference 17.5 cm, age 20 weeks 1 days. Abdominal circumference 15.5 cm, age 20 weeks 5 days. Femur length 3.2 cm, age 19 weeks 6 days. Sonographic estimate age: 20 weeks 1 days. Sonographic estimated date of delivery: 02-23-17. Estimated Weight: 342 gm (+/- 50 gm). LMP percentile: 60%. heart rate: active cardiac motion beats per minute. number: 1 of 1. IMPRESSION: Single live intrauterine fetus measuring 20 weeks 1 day in size as described above. There were no detectable abnormalities although there was significant limitation on the survey. Followup is recommended as clinically warranted. There has been normal interval growth since the prior study. Dictated by: Dictated on workstation # [id number]
== END ==
LOC: RAD 12:41
PROVIDERS: ATTEND Obstetrics & Gynecology
DX: Z34.82 Encounter for supervision of other normal pregnancy, second trimester (principal); Z3A.20 20 weeks gestation of pregnancy
CPT/HCPCS: 76805

== ENCOUNTER → 2016-10-29 | Outpatient (CLI) | payer MEDICAID ==
--- NOTE | 2016-10-29 14:22 | Diagnostic Imaging Report ---
INDICATION: Followup incomplete anatomical survey. TECHNIQUE: Multiple real-time grayscale images were obtained over the gravid uterus. COMPARISON: 09/06/2016. FINDINGS: Single live intrauterine is again demonstrated. There was good visualization of the brain, three-vessel cord, and spine on today's exam. Good visualization of the four-chamber heart was again limited due to positioning. Recommend continued short-term sonographic followup. presentation is cephalic. Normal amniotic fluid index measuring 11.4 cm. Grade 2 placenta is located anteriorly with no placenta previa. heart rate measures 123 beats per minute. IMPRESSION: Good visualization of the brain, three-vessel cord, and spine. Poor visualization of the four-chamber heart due to positioning. Recommend continued sonographic followup. Dictated by: Dictated on workstation # [id number]
== END ==
LOC: RAD 12:47
PROVIDERS: ATTEND Obstetrics & Gynecology
DX: Z36 Encounter for antenatal screening of mother (principal); Z3A.00 Weeks of gestation of pregnancy not specified
CPT/HCPCS: 76816

== ENCOUNTER 2016-11-05 12:15 | Outpatient (CLI) | payer MEDICAID ==
[2016-11-05 13:05] VITALS: BP 112/64
--- NOTE | 2016-11-06 18:35 | Physician Query-Final Dx ---
TUSHAR FLAHERTY 11/06/16 1835: Clinic Account Progress/Dx Physician Query: Please give diagnosis Date of Service Nov 05, 2016 at 12:15 ULICES DYSON MD 11/06/16 1840: Clinic Account Progress/Dx DIAGNOSIS: Diagnosis decreased movement TUSHAR FLAHERTY Nov 06, 2016 18:35 ULICES DYSON MD Nov 06, 2016 18:40
[2017-01-02] MEDS ORDERED: PREN-8 PO (09:36)
[2017-01-02] MEDS ORDERED: METR500T PO (10:38)
== END 2016-11-05 13:12 | disposition home or self-care (01) ==
LOC: LDRP 12:15 → WSo 12:15
PROVIDERS: ATTEND Obstetrics & Gynecology
DX: O36.8130 Decreased fetal movements, third trimester, not applicable or unspecified (principal); Z3A.28 28 weeks gestation of pregnancy
CPT/HCPCS: 99212

== ENCOUNTER 2017-01-11 09:13 | Outpatient (CLI) | payer MEDICAID ==
[~2017-01-11] VITALS: Ht 179.1 cm; Wt 132.9 kg
[~2017-01-11 09:13] MED LIST changes: +METR500T PO; +PREN-8 PO
[2017-01-11 09:35] VITALS: BP 114/73
[2017-01-11 09:41] LABS: BILIRUBIN,URINE NEGATIVE (NEGATIVE); KETONES,URINE NEGATIVE (NEGATIVE); LEUKOCYTE ESTERASE ,URINE 2+ (NEGATIVE); NITRITE,URINE NEGATIVE (NEGATIVE); PH,URINE 8 (5-9); PROTEIN,URINE NEGATIVE (NEGATIVE); UROBILINOGEN,URINE NORMAL (NORMAL)
[2017-01-11] MEDS ORDERED: NS IV 1000 ML 1,000 ML IV SCH (10:00)
[2017-01-11] MEDS ORDERED: NS IV 1000 ML 500 ML IV ONE (10:45)
[2017-01-13] MEDS ORDERED: INFLUENZA TRIvalent 2017-2018 0.5 ML/45 MCG SYR IM ONE (10:00)
== END 2017-01-11 11:25 | disposition home or self-care (01) ==
LOC: WSo 09:13 → MERGE 09:13 → LDRP 09:15 → WSo 11:25
PROVIDERS: ATTEND Obstetrics & Gynecology
DX: O47.1 False labor at or after 37 completed weeks of gestation (principal); O26.893 Other specified pregnancy related conditions, third trimester; M54.9 Dorsalgia, unspecified; Z3A.38 38 weeks gestation of pregnancy
CPT/HCPCS: 81000; 87088; 96360; 99213

== ENCOUNTER 2017-01-15 10:24 | Inpatient (IN) | payer MEDICAID ==
[2017-01-15] VITALS (70 sets, daily range): BP systolic 11–154; BP diastolic 41–103
[~2017-01-15] VITALS: Ht 179.1 cm; Wt 135.2 kg
[2017-01-15] MEDS ORDERED: INFLUENZA TRIvalent 2017-2018 0.5 ML/45 MCG SYR IM ONE (12:45)
[2017-01-15] MEDS ORDERED: D5 LR IV SOLUTION 1,000 ML IV SCH (13:09)
[2017-01-15] MEDS ORDERED: SUFENTA 0.6MCG/ML BUPIVA 0.125 100 ML ONE (13:09)
--- NOTE | 2017-01-15 13:09 | History & Physical-OB ---
OB - Chief Complaint & HPI Date/Time Date of Admission: Date of Admission: Jan 15, 2017 at 12:16 pm Time Seen by Provider: 13:00 Chief Complaint/History OB-Reason for Admission/Chief: Onset of Labor Hx : 1 Hx Para: 0 Expected Date of Delivery: Jan 24, 2017 Gestational Age in Weeks: 38 Gestational Age in Days: 5 Admission Nurse Assessment Rev: Yes History of Labs B pos Antibody neg RI RPR NR HBsAg NR HIV NR GC neg GBS neg Allergies and Home Medications Allergies Coded Allergies: No Known Drug Allergies (Unverified , 01/02/17) Home Medications Vit W-Ca,Fe,FA(<1 mg) 1 Each Tablet, 1 EACH PO DAILY, (Reported) OB - History Hx of Present Care: Yes Ultrasounds: Normal mid trimester US Obstetrical Complications: None Medical Complications: None Other Concerns: Underwent Lap Sherly at 16 weeks Patient Past Medical History BMI 42 Social History/Family History Recent Infectious Disease Expo: No OB - Admission Exam Physical Exam Date Seen by Provider: Jan 15, 2017 Time Seen by Provider: 13:07 HEENT: NCAT Heart: Rhythm Normal Lungs: Clear Abdomen: Gravid Extremities: Normal Reflexes: Normal Cervical Dilatation: 5cm Effacement: 75% Station: -1 Membranes: Ruptured Amniotic Fluid: Thick Meconium Heart Rate: 130's Accelerations: Accelerations Present Decelerations: No Decelerations Short Term Variability: Present Hot Oiler Variability: Average (6-25) Contractions on Admission: < 5 Minutes Apart Intensity: Firm OB - Assessment/Plan/Diagnosis Assessment Assessment: active labor Plan Plan: Expectant Management Induction Method: AROM Discharge Diagnosis Diagnosis: 26 yo @ 38.5 Meconium fluid at AROM GBS neg BMI 42 DEBRA MATTHEWS DO Jan 15, 2017 1:09 pm
[2017-01-15] MEDS ORDERED: OXYTOCIN/NORMAL SALINE 500 ML IV SCH (13:11)
[2017-01-15 13:35] LABS: BASOPHILS % (AUTO) 0 % (0-10); EOSINOPHILS % (AUTO) 0 % (0-10); LYMPHOCYTES % (AUTO) 17 % (12-44); MEAN CORPUSCULAR HGB CONC 33 G/DL (32-36); MEAN CORPUSCULAR VOLUME 81 FL (80-99); MONOCYTES # (AUTO) 0.6 X 10^3 (0.0-1.0); MONOCYTES % (AUTO) 5 % (0-12); NEUTROPHILS % (AUTO) 77 % (42-75); RED CELL DISTRIBUTION WIDTH 16.2 % (10.0-14.5)
[2017-01-15 13:37] LABS: MEAN CORPUSCULAR HEMOGLOBIN 26 PG (25-34); PLATELET COUNT 230 10^3/uL (130-400)
[2017-01-15] MEDS ORDERED: CATHETER FLUSH 10 ML SYR IV SCH ×2 (14:00→22:00)
[2017-01-15] MEDS ORDERED: LIDOCAINE PF 2% 5 ML (XYLOCAINE) VIAL ONE (14:11)
[2017-01-15] MEDS ORDERED: fentaNYL INJECTION 250 MCG/5 ML AMP ONE (14:11)
[2017-01-15] MEDS ORDERED: LACTATED RINGERS 1,000 ML IV SCH (14:35)
[2017-01-15] MEDS: D5 LR IV SOLUTION 1,000 ML IV SCH ×2 (14:38→15:40)
[2017-01-15] MEDS ORDERED: EPIDURAL (SUFENTA 0.6MCG/ML BUPIVA 0.125%) 100 ML BAG EPI SCH (14:45)
[2017-01-15] MEDS ORDERED: ONDANSETRON 4 MG/2 ML (SDV) Z0FRAN IV PRN (14:45)
[2017-01-15] MEDS ORDERED: NALOXONE 0.4 MG/ML 1 ML (NARCAN) VIAL IV PRN ×2 (14:45)
[2017-01-15] MEDS ORDERED: diphenhydrAMINE 50 MG/ML INJ (BENADRYL) IV PRN (14:45)
[2017-01-15] MEDS ORDERED: METOCLOPRAMIDE INJ 10 MG/2 ML (REGLAN) IV PRN (14:45)
[2017-01-15] MEDS: OXYTOCIN/NORMAL SALINE 500 ML IV SCH ×2 (18:12→18:50)
--- NOTE | 2017-01-15 18:25 | OB Labor & Delivery Record ---
L&D History Date of Service Date of Service: Jan 15, 2017 History Expected Date of Delivery: Jan 24, 2017 Gestational Age in Weeks: 38 Hx : 1 Hx Para: 0 Complications Events: Routine care Operative Indications (Cesarea: N/A-Vaginal Delivery Intrapartal Events: None Other Complications Meconium stained fluid L&D Stage1 Stage One Onset of Labor - Date: Jan 15, 2017 Monitors and Tracing Monitor Mode: External Heart Rate: 145 Monitor Decelerations: Variable Station: -3 Rupture of Membranes Spontaneous Ruture of Membrane: No Amniotic Membrane Rupture Time: 1241 Amniotic Membrane Fluid Desc.: Meconium Stained Vaginal Bleeding Description: Normal Show Induction/Anesthesia Epidural Cath Placement - Time: 1411 L&D Stage2 Stage Two Stage II Date: Jan 15, 2017 Monitors and Tracing Monitor Mode: External Heart Rate: 145 Monitor Decelerations: Variable Position: Right Occiput Anterior Presentation: Vertex Cord Descript/Complications Cord Vessel Description: 3 Vessels Complications At delivery of head nares and orophaynx suctioned using delee Delivery Type Delivery Method: Spontaneous Vaginal Anterior Shoulder: Right Episiotomy/Perineal Laceration Laceraction(s)/Extensions: No Condition of Infant Delivery 1 minute Comment: 7 5 minute Comment: 8 Notes live female infant weight pending Condition of Infant Condition of Infant: Living Exam: No Observed Abnormalities Resuscitation Resuscitation: N/A - Spontaneous Resp L&D Stage3 Stage Three Stage III Date: Jan 15, 2017 Pictocin Pitocin Administration Comment: wide open 30 mu at delivery of placenta Placenta Delivery Placenta Delivery: Spontaneous Delivery Summary Summary blood loss >1000ml: No Vaginal blood loss >500ml: No 300 mL Attending at delivery: Debra Matthews DO Condition of Delivery Examined: Cervix Examined, Uterus Explored Post Hemorrhage: No Condition of Mother stable Condition of (s) stable DEBRA MATTHEWS DO Jan 15, 2017 6:25 pm
--- NOTE | 2017-01-15 18:27 | Discharge Inst-Women's Service ---
Discharge Inst-Women's Serv Depart Medication/Instructions New, Converted or Re-Newed RX: RX on Chart Consults/Follow Up Additional Follow Up: Yes Orders/Referrals Dr. Matthews in 6 weeks Activity Activity: Activity as Tolerated Driving Instructions: No Driving for 1 Week NO SMOKING: NO SMOKING Nothing Inside Vagina: No Douching, No [place], No Tampons Diet Discharge Diet: No Restrictions Symptoms to Report to : Bleeding Excessive, Pain Increased, Fever Over 101 Degrees F, Vaginal Bleeding Increase, Questions/Concerns For Any Problems or Questions: Contact Your Physician Skin/Wound Care Bathing Instructions: Shower ( x 2 weeks) DEBRA MATTHEWS DO Jan 15, 2017 6:27 pm
[2017-01-15] MEDS ORDERED: ACET1TAB43 PO (18:28)
[2017-01-15] MEDS ORDERED: FERR-74 PO (18:28)
[2017-01-15] MEDS ORDERED: IBUP-1773 PO (18:28)
[2017-01-15] MEDS ORDERED: BENZ56AE2 TP (18:28)
[2017-01-15] MEDS ORDERED: DIBUCAINE (NUPERCAINAL) 1% OINT 30 GM TOP PRN (18:30)
[2017-01-15] MEDS ORDERED: MEASLES,MUMPS,RUBELLA 1 EA INJ SQ ONE (18:30)
[2017-01-15] MEDS ORDERED: BENZOCAINE/MENTHOL (DERMOPLAST) 56 ML CAN TP PRN (18:30)
[2017-01-15] MEDS ORDERED: TETANUS,DIPTH,PERTUSS P/F (BOOSTRIX) 0.5 ML VIAL IM ONE (18:30)
[2017-01-15] MEDS ORDERED: APAP 300 MG/CODEINE 30 MG (TYLENOL #3) TAB PO PRN (18:30)
[2017-01-15] MEDS ORDERED: WITCH HAZEL(TUCKS) 40 EA JAR TOP PRN (18:30)
[2017-01-15] MEDS: IBUPROFEN 600 MG (MOTRIN) TAB PO SCH (22:08)
[2017-01-15] MEDS: DOCUSATE SODIUM 100 MG (COLACE) CAP PO SCH (22:09)
[2017-01-16] VITALS: BP 117/67
[2017-01-16 04:00] VITALS: BP 120/68
[2017-01-16] MEDS: IBUPROFEN 600 MG (MOTRIN) TAB PO SCH ×4 (04:45→22:21)
[2017-01-16 05:51] LABS: BASOPHILS % (AUTO) 0 % (0-10); EOSINOPHILS % (AUTO) 0 % (0-10); LYMPHOCYTES # (AUTO) 3.1 X 10^3 (1.0-4.0); LYMPHOCYTES % (AUTO) 22 % (12-44); MEAN CORPUSCULAR HEMOGLOBIN 27 PG (25-34); MEAN CORPUSCULAR HGB CONC 33 G/DL (32-36); MEAN CORPUSCULAR VOLUME 82 FL (80-99); MEAN PLATELET VOLUME 11.2 FL (7.4-10.4); MONOCYTES # (AUTO) 0.9 X 10^3 (0.0-1.0); MONOCYTES % (AUTO) 6 % (0-12); NEUTROPHILS % (AUTO) 71 % (42-75); PLATELET COUNT 201 10^3/uL (130-400); RED BLOOD COUNT 3.96 10^6/uL (4.35-5.85); RED CELL DISTRIBUTION WIDTH 16.2 % (10.0-14.5); WHITE BLOOD COUNT 14.1 10^3/uL (4.3-11.0)
[2017-01-16 08:23] VITALS: BP 109/66
[2017-01-16] MEDS: PRENATAL VITAMIN 1 EA TAB PO SCH (08:49)
[2017-01-16] MEDS: DOCUSATE SODIUM 100 MG (COLACE) CAP PO SCH ×2 (08:50→22:21)
[2017-01-16] MEDS: FERROUS SULF 325 MG (IRON) TAB PO SCH (08:50)
--- NOTE | 2017-01-16 10:09 | Progress Note-Standard ---
Standard Progress Note Progress Notes/Assess & Plan Date Seen by Provider: Jan 16, 2017 Time Seen by Provider: 09:15 Progress/Assessment & Plan Patient doing well PPD 1 NVD. Reports no pain. Attempting to breastfeed. Lochia mod-light. Overall no concerns Vital Sign - Last 24 Hours 01/15/17 01/15/17 01/15/17 01/15/17 10:43 11:14 12:00 12:13 Temp 97.1 97.7 Pulse 102 91 84 88 Resp 20 20 20 20 B/P (MAP) 101/72 120/65 119/72 127/68 Pulse Ox 97 O2 Delivery Room Air Room Air Room Air Room Air 01/15/17 01/15/17 01/15/17 01/15/17 12:44 13:15 13:30 13:45 Temp 96.4 Pulse 88 81 80 Resp 20 18 18 B/P (MAP) 111/60 123/70 119/67 O2 Delivery Room Air Room Air Room Air 01/15/17 01/15/17 01/15/17 01/15/17 14:00 14:03 14:07 14:10 Pulse 81 79 85 79 Resp 18 18 18 18 B/P (MAP) 131/94 141/103 132/92 152/97 Pulse Ox 98 99 97 97 O2 Delivery Room Air Room Air Room Air Room Air 01/15/17 01/15/17 01/15/17 01/15/17 14:13 14:17 14:21 14:23 Pulse 79 84 84 99 Resp 18 18 18 18 B/P (MAP) 139/83 151/90 125/74 125/83 Pulse Ox 97 96 98 98 O2 Delivery Room Air Room Air Room Air Room Air 01/15/17 01/15/17 01/15/17 01/15/17 14:26 14:30 14:32 14:35 Pulse 87 88 89 81 Resp 18 18 18 18 B/P (MAP) 125/81 111/71 89/53 83/53 Pulse Ox 98 98 98 98 O2 Delivery Room Air Room Air Room Air Room Air 01/15/17 01/15/17 01/15/17 01/15/17 14:38 14:40 14:43 14:46 Pulse 87 78 75 69 Resp 18 18 18 18 B/P (MAP) 98/60 78/46 82/53 71/41 Pulse Ox 98 98 98 98 O2 Delivery Room Air Room Air Room Air Room Air 01/15/17 01/15/17 01/15/17 01/15/17 14:50 14:53 14:56 14:59 Pulse 67 73 74 76 Resp 18 18 18 18 B/P (MAP) 80/49 113/62 87/51 88/50 Pulse Ox 97 97 97 98 O2 Delivery Room Air Room Air Room Air Room Air 01/15/17 01/15/17 01/15/17 01/15/17 15:01 15:04 15:07 15:10 Pulse 73 88 85 89 Resp 18 18 18 18 B/P (MAP) 123/69 103/57 103/58 101/57 Pulse Ox 98 97 97 98 O2 Delivery Room Air Room Air Room Air Room Air 01/15/17 01/15/17 01/15/17 01/15/17 15:13 15:16 15:19 15:22 Pulse 84 85 85 88 Resp 18 18 18 18 B/P (MAP) 100/60 101/58 124/72 123/66 Pulse Ox 97 97 98 98 O2 Delivery Room Air Room Air Room Air Room Air 01/15/17 01/15/17 01/15/17 01/15/17 15:25 15:28 15:31 15:33 Pulse 92 101 101 83 Resp 18 18 18 18 B/P (MAP) 116/66 112/69 101/59 103/66 Pulse Ox 98 98 98 96 O2 Delivery Room Air Room Air Room Air Room Air 01/15/17 01/15/17 01/15/17 01/15/17 15:36 15:40 15:43 15:55 Pulse 82 75 87 99 Resp 18 18 18 18 B/P (MAP) 110/69 117/64 122/73 121/63 Pulse Ox 96 98 98 99 O2 Delivery Room Air Room Air Room Air Room Air 01/15/17 01/15/17 01/15/17 01/15/17 16:05 16:15 16:25 16:35 Pulse 85 85 80 96 Resp 18 18 18 18 B/P (MAP) 121/71 124/82 128/73 123/74 Pulse Ox 99 99 99 O2 Delivery Room Air Room Air Room Air Room Air 01/15/17 01/15/17 01/15/17 01/15/17 16:45 16:55 17:05 17:15 Pulse 107 103 103 105 Resp 18 18 18 18 B/P (MAP) 132/75 104/59 128/76 117/76 O2 Delivery Room Air Room Air Room Air Room Air 01/15/17 01/15/17 01/15/17 01/15/17 17:35 17:45 17:55 18:05 Temp 98.7 Pulse 112 89 80 105 Resp 18 18 18 18 B/P (MAP) 106/78 149/83 143/86 154/84 O2 Delivery Room Air Room Air Room Air Room Air 01/15/17 01/15/17 01/15/17 01/15/17 18:15 18:30 18:45 19:00 Pulse 125 121 103 95 Resp 18 18 18 18 B/P (MAP) 128/59 111/59 126/79 120/70 O2 Delivery Room Air Room Air Room Air Room Air 01/15/17 01/15/17 01/15/17 01/15/17 19:14 19:22 19:23 19:34 Temp 97.9 Pulse 97 97 92 Resp 18 18 18 B/P (MAP) 120/71 111/64 121/87 O2 Delivery Room Air Room Air Room Air 01/15/17 01/15/17 01/15/17 01/15/17 19:43 19:53 20:03 20:13 Temp 97.1 Pulse 80 81 106 90 Resp 18 18 18 18 B/P (MAP) 121/68 125/72 126/75 129/71 O2 Delivery Room Air Room Air Room Air Room Air 01/15/17 01/15/17 01/15/17 01/15/17 20:34 20:43 20:54 21:20 Temp 97.4 Pulse 81 85 82 86 Resp 18 18 18 18 B/P (MAP) 114/59 113/60 122/69 122/74 Pulse Ox 97 O2 Delivery Room Air Room Air Room Air Room Air 01/16/17 01/16/17 01/16/17 00:00 04:00 08:23 Temp 96.7 98.2 97.6 Pulse 73 68 72 Resp 18 18 16 B/P (MAP) 117/67 120/68 109/66 Pulse Ox 96 97 97 O2 Delivery Room Air Room Air Uterine fundus firm and palpated below umbilicus Laboratory Tests Test 01/15/17 12:30 01/16/17 05:15 Range/Units White Blood Count 13.0 H 14.1 H 4.3-11.0 10^3/uL Red Blood Count 4.60 3.96 L 4.35-5.85 10^6/uL Hemoglobin 12.1 10.7 L 11.5-16.0 G/DL Hematocrit 37 33 L 35-52 % Mean Corpuscular Volume 81 82 80-99 FL Mean Corpuscular Hemoglobin 26 27 25-34 PG Mean Corpuscular Hemoglobin Concent 33 33 32-36 G/DL Red Cell Distribution Width 16.2 H 16.2 H 10.0-14.5 % Platelet Count 230 201 130-400 10^3/uL Mean Platelet Volume 10.0 11.2 H 7.4-10.4 FL Neutrophils (%) (Auto) 77 H 71 42-75 % Lymphocytes (%) (Auto) 17 22 12-44 % Monocytes (%) (Auto) 5 6 0-12 % Eosinophils (%) (Auto) 0 0 0-10 % Basophils (%) (Auto) 0 0 0-10 % Neutrophils # (Auto) 9.0 H 10.0 H 1.8-7.8 X 10^3 Lymphocytes # (Auto) 2.0 3.1 1.0-4.0 X 10^3 Monocytes # (Auto) 0.6 0.9 0.0-1.0 X 10^3 Eosinophils # (Auto) 0.0 0.0 0.0-0.3 10^3/uL Basophils # (Auto) 0.0 0.0 0.0-0.1 10^3/uL Diagnosis: PPD 1 NVD P: Continue routine PP care DEBRA MATTHEWS DO Jan 16, 2017 10:09 am
[2017-01-16 12:46] VITALS: BP 133/88
--- NOTE | 2017-01-16 14:06 | Anesthesia-Regional Post-Op ---
Regional Patient Condition Mental Status: Alert, Oriented x3 Circulation: Same as Pre-Op Headache: Absent Sensation: Full Recovery Motor Block: Absent Post Op Complications Complications None Follow Up Care/Instructions Patient Instructions None needed. Anesthesia/Patient Condition Patient is doing well, no complaints, stable vital signs, no apparent adverse anesthesia problems. No complications reported per nursing. NASRA VERDUZCO CRNA Jan 16, 2017 14:06
[2017-01-16 16:12] VITALS: BP 122/78
[2017-01-16 20:00] VITALS: BP 121/76
[2017-01-17 02:33] VITALS: BP 124/82
[2017-01-17] MEDS: IBUPROFEN 600 MG (MOTRIN) TAB PO SCH ×2 (06:07→12:43)
--- NOTE | 2017-01-17 07:08 | Progress Note-Standard ---
Standard Progress Note Progress Notes/Assess & Plan Date Seen by Provider: Jan 17, 2017 Time Seen by Provider: 07:15 Progress/Assessment & Plan Patient doing well PPD 2 NVD. Reports no pain. Attempting to breastfeed. Lochia mod-light. Overall no concerns Vital Sign - Last 24 Hours 01/16/17 01/16/17 01/16/17 01/16/17 08:23 09:00 12:46 16:12 Temp 97.6 97.2 97.8 Pulse 72 70 80 Resp 16 16 16 B/P (MAP) 109/66 133/88 122/78 Pulse Ox 97 97 98 97 O2 Delivery Room Air Room Air 01/16/17 01/17/17 20:00 02:33 Temp 96.8 97.2 Pulse 67 72 Resp 19 18 B/P (MAP) 121/76 124/82 Pulse Ox 98 98 O2 Delivery Room Air Room Air Diagnosis: PPD 2 NVD P: Continue routine PP care Discharge today DEBRA MATTHEWS DO Jan 17, 2017 7:08 am
[2017-01-17] MEDS: PRENATAL VITAMIN 1 EA TAB PO SCH (08:34)
[2017-01-17] MEDS: DOCUSATE SODIUM 100 MG (COLACE) CAP PO SCH (08:36)
[2017-01-17] MEDS: FERROUS SULF 325 MG (IRON) TAB PO SCH (08:37)
[2017-01-17 09:00] VITALS: BP 124/90
[2017-01-17 12:11] VITALS: BP 119/76
[2017-01-17] MEDS ORDERED: INFLUENZA TRIvalent 2017-2018 0.5 ML/45 MCG SYR IM ONE (12:26)
[2017-01-17] MEDS ORDERED: TETANUS,DIPTH,PERTUSS P/F (BOOSTRIX) 0.5 ML VIAL IM ONE (12:26)
== END 2017-01-17 14:50 | disposition home or self-care (01) | DRG 775 ==
LOC: WSo 10:24 → LDRP 10:26 → WSo 12:15 → MERGE 12:16 → LDRP 12:16
PROVIDERS: ADMIT Obstetrics & Gynecology; ATTEND Obstetrics & Gynecology
PROC: 10E0XZZ Delivery of Products of Conception, External Approach (ICD-10-PCS; principal; 2017-01-15)
DX: O77.0 Labor and delivery complicated by meconium in amniotic fluid (principal); Z37.0 Single live birth; Z3A.38 38 weeks gestation of pregnancy
CPT/HCPCS: 36415; 85025; 86850; 86900; 86901; 90715; 99212

== ENCOUNTER 2017-08-02 18:43 | Emergency (ER) | payer SELFPAY ==
[~2017-08-02] VITALS: Ht 177.8 cm; Wt 131.5 kg
[~2017-08-02 18:43] MED LIST changes: +ACET1TAB43 PO; +ACHD5005 PO; +BENZ56AE2 TP; +FERR325T18 PO; -HYDR-3812 PO; +IBUP-1773 PO
[2017-08-02 19:41] LABS: BASOPHILS % (AUTO) 0 % (0-10); EOSINOPHILS # (AUTO) 0.1 10^3/uL (0.0-0.3); EOSINOPHILS % (AUTO) 1 % (0-10); HEMATOCRIT 37 % (35-52); HEMOGLOBIN 11.9 G/DL (11.5-16.0); LYMPHOCYTES % (AUTO) 27 % (12-44); MEAN CORPUSCULAR HEMOGLOBIN 26 PG (25-34); MEAN CORPUSCULAR HGB CONC 32 G/DL (32-36); MEAN CORPUSCULAR VOLUME 82 FL (80-99); MEAN PLATELET VOLUME 9.4 FL (7.4-10.4); MONOCYTES # (AUTO) 0.7 X 10^3 (0.0-1.0); MONOCYTES % (AUTO) 6 % (0-12); NEUTROPHILS # (AUTO) 7.4 X 10^3 (1.8-7.8); NEUTROPHILS % (AUTO) 66 % (42-75); PLATELET COUNT 379 10^3/uL (130-400); RED BLOOD COUNT 4.57 10^6/uL (4.35-5.85); RED CELL DISTRIBUTION WIDTH 15.1 % (10.0-14.5); WHITE BLOOD COUNT 11.3 10^3/uL (4.3-11.0)
[2017-08-02] MEDS ORDERED: ONDANSETRON 4 MG/2 ML (SDV) Z0FRAN IVP ONE (19:45)
[2017-08-02] MEDS ORDERED: LACTATED RINGERS 1,000 ML IV SCH (19:45)
[2017-08-02] MEDS ORDERED: KETOROLAC 30 MG/ML VIAL IVP ONE (19:45)
[2017-08-02 19:52] LABS: ALANINE AMINOTRANSFERASE 18 U/L (0-55); ALKALINE PHOSPHATASE 84 U/L (40-136); BILIRUBIN,TOTAL 0.2 MG/DL (0.1-1.0); BUN/CREATININE RATIO 17; CALCIUM 9.2 MG/DL (8.5-10.1); CARBON DIOXIDE 26 MMOL/L (21-32); CHLORIDE 103 MMOL/L (98-107); CREATININE SERUM 0.66 MG/DL (0.60-1.30); GFR ESTIMATED > 60; GLUCOSE 104 MG/DL (70-105); POTASSIUM 3.7 MMOL/L (3.6-5.0); SODIUM 139 MMOL/L (135-145); TOTAL PROTEIN 8.4 GM/DL (6.4-8.2)
--- NOTE | 2017-08-02 19:55 | ED Abdominal Pain ---
General Chief Complaint: Abdominal/GI Problems Stated Complaint: BACK AND ABD PAIN Nursing Triage Note: PT TO ED 6 W/ C/O N/V ONSET SATURDAY, WORSE TODAY. 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 Timing/Duration: 2-3 Days Severity/Quality: Moderate Location: RLQ Radiation: No Radiation Activities at Onset: None Associated Symptoms: Nausea/Vomiting Allergies and Home Medications Allergies Coded Allergies: No Known Drug Allergies (Unverified , 04/18/14) Home Medications Acetaminophen 500 Mg Tablet, 1,000 MG PO Q8H PRN for PAIN-MILD TO MODERATE, ( Reported) TAKES 2 (500 MG) TABLETS Acetaminophen with Codeine 1 Each Tablet, 1-2 TAB PO Q4H PRN for PAIN-MODERATE Prescribed by: DEBRA MATTHEWS on 01/15/171827 Benzocaine/Menthol 56 Gm Aerosol, 56 ML TP UD PRN for PAIN- SEE INSTRUCTIONS Prescribed by: DEBRA MATTHEWS on 01/15/171827 Ferrous Sulfate 325 Mg Tablet, 325 MG PO DAILY Prescribed by: DEBRA MATTHEWS on 01/15/171827 Hydrocodone Bit/Acetaminophen 1 Each Tablet, 1-2 TAB PO 4-6HR PRN for PAIN Prescribed by: KRISTIN MERCADO on 07/30/16 1446 Ibuprofen 600 Mg Tablet, 600 MG PO Q6H Prescribed by: DEBRA MATTHEWS on 01/15/171827 Nyg470/FA/Omega3/Dha/Fish Oil 1 Each Tab.chew, 2 TAB PO DAILY, (Reported) Vit W-Ca,Fe,FA(<1 mg) 1 Each Tablet, 1 EACH PO DAILY, (Reported) Patient Home Medication List Home Medication List Reviewed: Yes Review of Systems Constitutional: see HPI, chills EENTM: No Symptoms Reported Respiratory: No Symptoms Reported Cardiovascular: No Symptoms Reported Gastrointestinal: See HPI, Abdominal Pain, Diarrhea, Nausea, Vomiting Genitourinary: No Symptoms Reported Musculoskeletal: no symptoms reported Skin: no symptoms reported Psychiatric/Neurological: No Symptoms Reported Past Vcfpinr-Umbuwy-Lbmifm Hx Patient Social History Alcohol Use: Denies Use Recreational Drug Use: No Smoking Status: Never a Smoker 2nd Hand Smoke Exposure: No Recent Foreign Travel: No Contact w/Someone Who Travel: No Recent Infectious Disease Expo: No Recent Hopitalizations: No Physical Abuse: No Sexual Abuse: No Mistreated: No Fear: No Immunizations Up To Date Tetanus Booster (TDap): Unknown PED Vaccines UTD: Yes Seasonal Allergies Seasonal Allergies: No Past Medical History Surgeries: Yes (RUPTURED APPENDIX--HOSPITALIZED X 3 WEEKS) Appendectomy, Gallbladder Respiratory: No Cardiac: No Neurological: No Reproductive Disorders: No 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 No Pertinent Family Hx Physical Exam Vital Signs Vital Signs - First Documented 08/02/17 19:03 Temp 96.0 Pulse 100 Resp 20 B/P (MAP) 128/90 (103) Pulse Ox 99 O2 Delivery Room Air Capillary Refill : Less Than 3 Seconds General Appearance: WD/WN, no apparent distress, obese HEENT: PERRL/EOMI, normal ENT inspection Neck: non-tender, full range of motion Respiratory: no respiratory distress, no accessory muscle use Cardiovascular: regular rate, rhythm, no murmur Gastrointestinal: normal bowel sounds, soft, tenderness (Minimal right lower abdominal tenderness) Extremities: normal range of motion, non-tender Neurologic/Psychiatric: alert, normal mood/affect, oriented x 3 Skin: normal color, warm/dry Progress/Results/Core Measures Lab Results Laboratory Tests Test 08/02/17 19:11 08/02/17 21:19 Range/Units White Blood Count 11.3 H 4.3-11.0 10^3/uL Red Blood Count 4.57 4.35-5.85 10^6/uL Hemoglobin 11.9 11.5-16.0 G/DL Hematocrit 37 35-52 % Mean Corpuscular Volume 82 80-99 FL Mean Corpuscular Hemoglobin 26 25-34 PG Mean Corpuscular Hemoglobin Concent 32 32-36 G/DL Red Cell Distribution Width 15.1 H 10.0-14.5 % Platelet Count 379 130-400 10^3/uL Mean Platelet Volume 9.4 7.4-10.4 FL Neutrophils (%) (Auto) 66 42-75 % Lymphocytes (%) (Auto) 27 12-44 % Monocytes (%) (Auto) 6 0-12 % Eosinophils (%) (Auto) 1 0-10 % Basophils (%) (Auto) 0 0-10 % Neutrophils # (Auto) 7.4 1.8-7.8 X 10^3 Lymphocytes # (Auto) 3.0 1.0-4.0 X 10^3 Monocytes # (Auto) 0.7 0.0-1.0 X 10^3 Eosinophils # (Auto) 0.1 0.0-0.3 10^3/uL Basophils # (Auto) 0.0 0.0-0.1 10^3/uL Sodium Level 139 135-145 MMOL/L Potassium Level 3.7 3.6-5.0 MMOL/L Chloride Level 103 98-107 MMOL/L Carbon Dioxide Level 26 21-32 MMOL/L Anion Gap 10 5-14 MMOL/L Blood Urea Nitrogen 11 7-18 MG/DL Creatinine 0.66 0.60-1.30 MG/DL Estimat Glomerular Filtration Rate > 60 BUN/Creatinine Ratio 17 Glucose Level 104 70-105 MG/DL Calcium Level 9.2 8.5-10.1 MG/DL Total Bilirubin 0.2 0.1-1.0 MG/DL Aspartate Amino Transf (AST/SGOT) 16 5-34 U/L Alanine Aminotransferase (ALT/SGPT) 18 0-55 U/L Alkaline Phosphatase 84 40-136 U/L Total Protein 8.4 H 6.4-8.2 GM/DL Albumin 4.0 3.2-4.5 GM/DL Serum Test, Qualitative NEGATIVE NEGATIVE Urine Color YELLOW Urine Clarity CLEAR Urine pH 7 5-9 Urine Specific [place]ato 1.010 L 1.016-1.022 Urine Protein 1+ H NEGATIVE Urine Glucose (UA) NEGATIVE NEGATIVE Urine Ketones NEGATIVE NEGATIVE Urine Nitrite NEGATIVE NEGATIVE Urine Bilirubin NEGATIVE NEGATIVE Urine Urobilinogen NORMAL NORMAL MG/DL Urine Leukocyte Esterase 1+ H NEGATIVE Urine RBC (Auto) NEGATIVE NEGATIVE Urine RBC NONE /HPF Urine WBC 2-5 /HPF Urine Squamous Epithelial Cells 10-25 H /HPF Urine Crystals NONE /LPF Urine Bacteria FEW H /HPF Urine Casts NONE /LPF Urine Mucus NEGATIVE /LPF Urine Culture Indicated NO My Orders Orders - ARMANDO PADILLA SHOT EXAMINER Cbc With Automated Diff (08/02/17 19:31) Comprehensive Metabolic Panel (08/02/17 19:31) Urine Bedside (08/02/17 19:31) Lactated Ringers (Lr 1000 Ml Iv Solution (08/02/17 19:45) Ketorolac Injection (Toradol Injection) (08/02/17 19:45) Ondansetron Injection (Zofran Injectio (08/02/17 19:45) Hcg,Qualitative Serum (08/02/17 19:55) Ct Abd/Pelv W (Appendicitis) (08/02/17 20:09) Iohexol Injection (Omnipaque 350 Mg/Ml 1 (08/02/17 21:00) Ns (Ivpb) (Sodium Chloride 0.9%) (08/02/17 21:00) Medications Given in ED Current Medications Medications Dose Ordered Sig/Esme Route Start Time Stop Time Status Last Admin Dose Admin Iohexol 100 ml ONCE ONCE IV 08/02/17 21:00 08/02/17 21:01 DC 08/02/17 20:47 100 ML Ketorolac Tromethamine 15 mg ONCE ONCE IVP 08/02/17 19:45 08/02/17 19:46 DC 08/02/17 19:41 15 MG Ondansetron HCl 4 mg ONCE ONCE IVP 08/02/17 19:45 08/02/17 19:46 DC 08/02/17 19:40 4 MG Sodium Chloride 80 ml ONCE ONCE IV 08/02/17 21:00 08/02/17 21:01 DC 08/02/17 20:47 80 ML Vital Signs/I&O 08/02/17 19:03 Temp 96.0 Pulse 100 Resp 20 B/P (MAP) 128/90 (103) Pulse Ox 99 O2 Delivery Room Air Blood Pressure Mean: 103 Departure Impression Primary Impression: Nausea vomiting and diarrhea Disposition: 01 HOME, SELF-CARE Condition: Stable Departure-Patient Inst. Decision time for Depature: 21:42 Referrals: NO,LOCAL PHYSICIAN (PCP/Family) Primary Care Physician Patient Instructions: NO INSTRUCTIONS GIVEN Add. Discharge Instructions: 1. Nausea medication as needed 2. Use [id number] Imodium as needed for diarrhea. All discharge instructions reviewed with patient and/or family. Voiced understanding. Work/School Note: Work Release Form Date Seen in the Emergency Department: Aug 02, 2017 Return to Work: Aug 03, 2017 ARMANDO PADILLA APRN Aug 02, 2017 19:55
[2017-08-02] MEDS ORDERED: NS 250 ML (IVPB) BAG IV ONE (21:00)
[2017-08-02] MEDS ORDERED: IOHEXOL 350 MG/ML 100 ML (OMNIPAQUE 350) VIAL IV ONE (21:00)
[2017-08-02 21:25] LABS: BILIRUBIN,URINE NEGATIVE (NEGATIVE); CLARITY,URINE CLEAR; COLOR,URINE YELLOW; GLUCOSE, URINE (UA) NEGATIVE (NEGATIVE); KETONES,URINE NEGATIVE (NEGATIVE); LEUKOCYTE ESTERASE ,URINE 1+ (NEGATIVE); NITRITE,URINE NEGATIVE (NEGATIVE); PH,URINE 7 (5-9); PROTEIN,URINE 1+ (NEGATIVE); UROBILINOGEN,URINE NORMAL (NORMAL)
--- NOTE | 2017-08-02 21:27 | Diagnostic Imaging Report ---
PROCEDURE: CT abdomen and pelvis with contrast, rule out appendicitis. TECHNIQUE: Multiple contiguous axial images were obtained through the abdomen and pelvis after the administration of intravenous contrast. INDICATION: Right lower quadrant abdominal pain. COMPARISON: None. FINDINGS: Included portions of the lung bases are clear. CT abdomen: Normal appendix is identified. There are a few mildly prominent appearing pericecal/periappendiceal lymph nodes. Prominent right-sided retroperitoneal lymph nodes are also noted. Reference lymph node measures 1.0 x 1.4 cm (image 87, series 2). Small bowel loops are nondistended. 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 Otherwise, the kidneys, adrenal glands, spleen, pancreas and liver have a normal CT appearance. There is no loculated fluid collection, free fluid or free air within the abdomen. Bony structures show no acute abnormalities. CT pelvis: Urinary bladder is grossly unremarkable. There is trace free fluid. There is no loculated fluid collection or free air. No abnormal lymph nodes are identified. Bony structures show no acute abnormality. IMPRESSION: 1. No CT evidence of acute appendicitis. 2. A few borderline prominent pericecal and retroperitoneal lymph nodes within the abdomen. Etiology and clinical significance is indeterminate based on this exam. 3. 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 4. Small amount of free fluid within the lower pelvis; likely physiologic. Dictated by: Dictated on workstation # [id number]
[2017-08-02 21:33] LABS: BACTERIA,URINE FEW /HPF
[2017-08-02] MEDS ORDERED: RX-ONDANSETRON 4 MG ODT (ZOFRAN) PPK #4 PO STA (21:45)
[2017-08-02 21:59] VITALS: BP 126/87
== END 2017-08-02 21:59 | disposition home or self-care (01) ==
LOC: EDUNIT# 18:43 → ER 18:44
DX: R11.2 Nausea with vomiting, unspecified (principal); R19.7 Diarrhea, unspecified; E66.01 Morbid (severe) obesity due to excess calories; F41.9 Anxiety disorder, unspecified; Z87.19 Personal history of other diseases of the digestive system; Z97.5 Presence of (intrauterine) contraceptive device; Z90.49 Acquired absence of other specified parts of digestive tract; Z98.890 Other specified postprocedural states; Z68.41 Body mass index [BMI] 40.0-44.9, adult
CPT/HCPCS: 36415; 74177; 80053; 81000; 84703; 85025; 96361; 96374; 96375

== ENCOUNTER → 2018-08-11 | Outpatient (CLI) | payer MEDICAID ==
--- NOTE | 2018-08-11 13:07 | Diagnostic Imaging Report ---
INDICATION: Size and dates. TECHNIQUE: Multiple real-time grayscale images were obtained over the gravid uterus. COMPARISON: None. FINDINGS: There is a single living intrauterine in a cephalic presentation. Placenta is posterior. There is no previa. There is normal volume of amniotic fluid. The biometry correlates with gestational age of 19 weeks 2 days. The anatomical survey is unremarkable. This includes a three-vessel cord and four-chamber heart. Heart rate is 139 beats per minute and regular. The sonographically estimated weight is 290 g. Biometrical measurements are as follows: Biparietal 4.31 cm, age 19 weeks 1 days. Head circumference 15.95 cm, age 18 weeks 6 days. Abdominal circumference 14.20 cm, age 19 weeks 4 days. Femur length 3.03 cm, age 19 weeks 3 days. Sonographic estimate age: 19 weeks 2 days. Sonographic estimated date of delivery: 01/03/2019. Estimated Weight: 290 gm (+/- 42 gm). LMP percentile: 9%. heart rate: 139 beats per minute. number: 1 of 1. IMPRESSION: Single living intrauterine with a sonographically estimated gestational age of 19 weeks 2 days and estimated date of confinement of January 03, 2019. Dictated by: Dictated on workstation # [id number]
== END ==
LOC: RAD 10:06
PROVIDERS: ATTEND Obstetrics & Gynecology
DX: Z34.92 Encounter for supervision of normal pregnancy, unspecified, second trimester (principal); Z3A.19 19 weeks gestation of pregnancy
CPT/HCPCS: 76805

== ENCOUNTER 2018-08-29 15:07 | Outpatient (CLI) | payer MEDICAID ==
[~2018-08-29] VITALS: Ht 177.8 cm; Wt 141.7 kg
--- NOTE | 2018-08-29 15:24 | NUR ---
AMANDEEP IBARRA presented to unit via AMBULATORY from ED, accompanied by FRIEND, with c/o PELVIC PAIN. AMANDEEP IBARRA S weighed, gowned, voided, and to bed. EFHM and TOCO applied, VS taken. AMANDEEP IBARRA oriented to bed controls, call light, TV, heat, and A/C controls.
[2018-08-29 15:30] VITALS: BP 112/60
--- NOTE | 2018-08-29 15:45 | NUR ---
PT IS 22 WEEKS AND 6 DAYS GESTATION. . PT CO LEFT SIDED HIP/JOINT PAIN WITH MOVEMENT. STATES SHE CAN HARDLY PUT WEIGHT ON THAT LEG. RATING PAIN 6/10, DESCRIBING PAIN PRESSURE. PT STATES SHE FELL/SLIPPED IN WATER ABOUT 1 MONTH AGO. WHEN ASKED HOW SHE FELL, PT STATES SHE DID NOT FALL ON HER ABDOMEN, SHE SOMEWHAT DID THE SPLITS. PT STATES SHE HAS NOT AHD PAIN SINCE THEN, SHE FEELS LIKE THE PAIN HAS WENT AWAY UNTIL A COUPLE DAYS AGO. VSS. FHT AT 145 @ 1538 VIA DOPPLER. PT STATES SHE HAS HAD ABOUT 20 OZ OF WATER TO DRINK TODAY. PT IS UNABLE TO VOID. THIS RN GIVES PT WATER TO TRY TO VOID FOR URINE SAMPLE FOR URINE DIP. THIS RN WILL CALL DR MATTHEWS WITH PT REPORT.
--- NOTE | 2018-08-29 16:15 | NUR ---
THIS RN CALLS DR MATTHEWS AT THIS TIME WITH FULL PT REPORT. DR MATTHEWS STATES TO HAVE PT FOLLOW UP WITH HIM IN THE OFFICE AND HE CAN GET HE SET UP WITH PHYSICAL THERAPY. STATES PT NEEDS TO TAKE TYLENOL FOR PAIN AND STRETCH OUT. DC TO HOME.
--- NOTE | 2018-09-02 22:49 | Physician Query-Final Dx ---
TUSHAR FLAHERTY 09/02/18 2249: Clinic Account Progress/Dx Physician Query: Please give diagnosis Need diagnosis and weeks of gestation Date of Service August 29, 2018 at 15:07 DEBRA MATTHEWS DO 09/03/18 0338: Clinic Account Progress/Dx DIAGNOSIS: Diagnosis 22 week IUP Hip pain UTSHAR FLAHERTY September 02, 2018 22:49 DEBRA MATTHEWS DO September 03, 2018 03:38
== END 2018-08-29 16:31 | disposition home or self-care (01) ==
LOC: WSo 15:07 → LDRP 15:10 → WSo 16:31
PROVIDERS: ATTEND Obstetrics & Gynecology
DX: M25.552 Pain in left hip (principal); Z3A.22 22 weeks gestation of pregnancy
CPT/HCPCS: 99213

== ENCOUNTER 2018-11-12 12:37 | Outpatient (CLI) | payer MEDICAID ==
[~2018-11-12] VITALS: Ht 179.1 cm; Wt 142.5 kg
--- NOTE | 2018-11-12 12:25 | NUR ---
AMANDEEP IBARRA S presented to unit via AMBULATORY from HOME, with c/o LEAKING, DECREASED MOVEMENTS. AMANDEEP IBARRA S weighed, gowned, voided, and to bed. EFHM and TOCO applied, VS taken. AMANDEEP IBARRA S oriented to bed controls, call light, TV, heat, and A/C controls.
[2018-11-12 12:47] VITALS: BP 127/70
[2018-11-12 12:59] LABS: BILIRUBIN,URINE NEGATIVE (NEGATIVE); CLARITY,URINE VERY CLOUDY; COLOR,URINE YELLOW; GLUCOSE, URINE (UA) NEGATIVE (NEGATIVE); KETONES,URINE NEGATIVE (NEGATIVE); LEUKOCYTE ESTERASE ,URINE 3+ (NEGATIVE); NITRITE,URINE NEGATIVE (NEGATIVE); PH,URINE 6.5 (5-9); PROTEIN,URINE 1+ (NEGATIVE); UROBILINOGEN,URINE 1 MG/DL (NORMAL)
[2018-11-12] MEDS ORDERED: FERR-65 PO (13:03)
[2018-11-12 13:19] LABS: BACTERIA,URINE LARGE /HPF
--- NOTE | 2018-11-12 13:25 | NUR ---
DR. DYSON NOTIFIED OF PT'S ARRIVAL, C/O, , 33-07/20, AMNIO, SVE, UA RESULTS AND REVIEW OF STRIP. NEW ORDERS RECEIVED.
[2018-11-12 13:58] LABS: BILIRUBIN,URINE NEGATIVE (NEGATIVE); CLARITY,URINE CLEAR; COLOR,URINE YELLOW; GLUCOSE, URINE (UA) NEGATIVE (NEGATIVE); KETONES,URINE NEGATIVE (NEGATIVE); LEUKOCYTE ESTERASE ,URINE NEGATIVE (NEGATIVE); NITRITE,URINE NEGATIVE (NEGATIVE); PH,URINE 7 (5-9); PROTEIN,URINE NEGATIVE (NEGATIVE); UROBILINOGEN,URINE NORMAL (NORMAL)
[2018-11-12 14:33] LABS: BACTERIA,URINE TRACE /HPF; RBC,URINE RARE /HPF; SQUAMOUS EPITHELIAL CELL,UR 0-2 /HPF
--- NOTE | 2018-11-12 14:57 | NUR ---
REFER TO LABOR FLOW SHEET.
--- NOTE | 2018-11-12 14:59 | NUR ---
DR. DYSON NOTIFIED OF LATEST LAB RESULTS. NEW ORDER RECEIVED FOR RX AND DISCHARGE HOME.
[2018-11-12] MEDS ORDERED: METR500T PO (15:10)
--- NOTE | 2018-11-12 15:20 | NUR ---
DISCHARGE PAPERS PROVIDED AND REVIEWED WITH PT, PT VERBALIZES UNDERSTANDING AND DENIES ANY QUESTIONS AT THIS TIME. PAPER SIGNED.
--- NOTE | 2018-11-12 15:23 | NUR ---
PT DISCHARGED FROM [facility] VIA AMBULATORY IN STABLE CONDITION.
--- NOTE | 2018-11-12 15:28 | NUR ---
RX CALLED INTO [facility].
--- NOTE | 2018-11-27 14:56 | Physician Query-Final Dx ---
TUSHAR FLAHERTY 11/27/18 1456: Clinic Account Progress/Dx Physician Query: Please give diagnosis Need diagnosis and weeks of gestation Date of Service Nov 12, 2018 at 12:37 ULICES DYSON MD 11/28/18 1142: Clinic Account Progress/Dx DIAGNOSIS: Diagnosis Decreased movement - I cannot find in the records this patient's gestational age TUSHAR FLAHERTY Nov 27, 2018 14:56 ULICES DYSON MD Nov 28, 2018 11:42
== END 2018-11-12 15:23 | disposition home or self-care (01) ==
LOC: WSo 12:37 → LDRP 12:38 → WSo 15:23
PROVIDERS: ATTEND Obstetrics & Gynecology
DX: O36.8190 Decreased fetal movements, unspecified trimester, not applicable or unspecified (principal)
CPT/HCPCS: 36415; 81000; 87088; 87210; 89060; 99214

== ENCOUNTER 2018-12-30 10:00 | Inpatient (IN) | payer MEDICAID ==
[2018-12-30] VITALS (50 sets, daily range): BP systolic 95–140; BP diastolic 52–80
[~2018-12-30] VITALS: Ht 177.8 cm; Wt 140.0 kg
[~2018-12-30 10:00] MED LIST changes: +FERR-65 PO
--- NOTE | 2018-12-30 10:00 | NUR ---
AMANDEEP IBARRA presented to unit via AMBULATORY from OFFICE, accompanied by DR MATTHEWS AND SISTER FOR LABOR. AMANDEEP IBARRA weighed, gowned, voided, and to bed. EFHM and TOCO applied, VS taken. AMANDEEP IBARRA oriented to bed controls, call light, TV, heat, and A/C controls.
[2018-12-30] MEDS ORDERED: OXYTOCIN/NORMAL SALINE 500 ML IV SCH ×2 (10:20→21:15)
--- NOTE | 2018-12-30 10:30 | History & Physical-OB ---
OB - Chief Complaint & HPI Date/Time Date of Admission: Date of Admission: Dec 30, 2018 at 10:00 Date seen by a Provider: Dec 30, 2018 Time Seen by a Provider: 10:00 Chief Complaint/History OB-Reason for Admission/Chief: Induction of Labor Hx : 3 Hx Para: 2 Expected Date of Delivery: Dec 27, 2018 Gestational Age in Weeks: 40 Gestational Age in Days: 3 Other reason for admission: Sent up from office for delivery due to non-reactive NST on todays exam Admission Nurse Assessment Rev: Yes History of Labs B pos Antibody neg RI RPR NR HBsAg NR HIV NR GC neg GBS neg Allergies and Home Medications Allergies Coded Allergies: No Known Drug Allergies (Unverified , 04/18/14) Home Medications Ferrous Sulfate 325 Mg Tablet, 325 MG PO DAILY, (Reported) Metronidazole 500 Mg Tablet, 500 MG PO BID Prescribed by: ABHISHEK ELY on 11/12/18 1510 Vit W-Ca,Fe,FA(<1 mg) 1 Each Tablet, 1 EACH PO DAILY, (Reported) Patient Home Medication List Home Medication List Reviewed: Yes OB - History Hx of Present Care: Yes Ultrasounds: Normal mid trimester US Obstetrical Complications: None Medical Complications: None Delivery History Hx Blood Disorders: No Patient Past Medical History BMI 42 Social History/Family History 2nd Hand Smoke Exposure: No Immunizations Hepatitis A: No Hepatitis B: No Tetanus Booster (TDap): Unknown OB - Admission Exam Physical Exam HEENT: NCAT Heart: Rhythm Normal Lungs: Clear Abdomen: Gravid Extremities: Normal Reflexes: Normal Cervical Dilatation: 3cm Effacement: 75% Station: -2 Membranes: Intact Heart Rate: 130's Accelerations: Accelerations Present Decelerations: No Decelerations Short Term Variability: Present Bark Scaler Variability: Average (6-25) Contractions on Admission: < 5 Minutes Apart Intensity: Moderate OB - Assessment/Plan/Diagnosis Assessment Assessment: induction of labor Admission Dx 28 yo @ 40.3 Non-reactive NST Postdates BMI 42 GBS neg Admission Status: Inpatient Order (span 2 midnights) Reason for Inpatient Admission: Induction of labor at term Plan Plan: Induction Induction Method: per Pitocin Protocol DEBRA MATTHEWS DO Dec 30, 2018 10:30
[2018-12-30 10:56] LABS: BASOPHILS % (AUTO) 0 % (0-10); EOSINOPHILS % (AUTO) 0 % (0-10); HEMATOCRIT 35 % (35-52); HEMOGLOBIN 11.3 G/DL (11.5-16.0); LYMPHOCYTES # (AUTO) 2.3 X 10^3 (1.0-4.0); LYMPHOCYTES % (AUTO) 23 % (12-44); MEAN CORPUSCULAR HEMOGLOBIN 25 PG (25-34); MEAN CORPUSCULAR HGB CONC 32 G/DL (32-36); MEAN CORPUSCULAR VOLUME 78 FL (80-99); MEAN PLATELET VOLUME 10.3 FL (7.4-10.4); MONOCYTES # (AUTO) 0.5 X 10^3 (0.0-1.0); MONOCYTES % (AUTO) 5 % (0-12); NEUTROPHILS # (AUTO) 7.2 X 10^3 (1.8-7.8); NEUTROPHILS % (AUTO) 72 % (42-75); PLATELET COUNT 335 10^3/uL (130-400); RED CELL DISTRIBUTION WIDTH 16.8 % (10.0-14.5); WHITE BLOOD COUNT 10.1 10^3/uL (4.3-11.0)
[2018-12-30] MEDS: D5 LR IV SOLUTION 1,000 ML IV SCH ×2 (11:03→18:25)
[2018-12-30] MEDS ORDERED: SUFENTA 0.6MCG/ML BUPIVA 0.125 100 ML ONE (11:20)
[2018-12-30] MEDS ORDERED: BUPIVACAINE 0.25% 30 ML (SENSORCAINE) VIAL ONE (12:01)
[2018-12-30] MEDS ORDERED: LIDOCAINE PF 2% 5 ML (XYLOCAINE) VIAL ONE (12:01)
[2018-12-30] MEDS ORDERED: fentaNYL INJECTION 100 MCG/2 ML AMP ONE (12:01)
--- NOTE | 2018-12-30 12:10 | NUR ---
Rhiannon Bravo HISTOLOGIST TECHNOLOGIST and HISTOLOGIST TECHNOLOGIST Student here for epidural placement. Procedure explained, consent reviewed and signed by anesthesia. Questions answered to patient's satisfaction. Time out taken to verify correct patient/procedure. Patient up to side of bed, assisted into sitting position. Betadine prep done x3 and sterile drape applied. Local done, see anesthesia record. Test dose given, see anesthesia record for drug and dosage. Epidural catheter secured in place. Epidural placement complete. Assisted back into bed, monitors adjusted. Epidural dosed, see anesthesia record. Epidural of Sufenta/Bupivicaine @ 12 cc/hr stated per pump. Patient tolerated procedure well.
[2018-12-30] MEDS: EPIDURAL (SUFENTA 0.6MCG/ML BUPIVA 0.125%) 100 ML BAG EPI PRN ×2 (12:30→19:58)
[2018-12-30] MEDS ORDERED: LACTATED RINGERS 1,000 ML IV SCH (12:41)
[2018-12-30] MEDS ORDERED: NALOXONE 0.4 MG/ML 1 ML (NARCAN) VIAL IV PRN (12:45)
[2018-12-30] MEDS ORDERED: ONDANSETRON 4 MG/2 ML (SDV) Z0FRAN IV PRN (12:45)
[2018-12-30] MEDS ORDERED: diphenhydrAMINE 50 MG/ML INJ (BENADRYL) IV PRN (12:45)
[2018-12-30] MEDS ORDERED: CATHETER FLUSH 10 ML SYR IV SCH ×2 (14:00→22:00)
[2018-12-30] MEDS ORDERED: LIDOCAINE/EPI 2% 1:200,00 (XYLOCAINE) 10 ML VIAL ONE (19:10)
[2018-12-30] MEDS ORDERED: DIBUCAINE (NUPERCAINAL) 1% OINT 30 GM TOP PRN (21:15)
[2018-12-30] MEDS ORDERED: TETANUS,DIPTH,PERTUSS P/F (BOOSTRIX) 0.5 ML VIAL IM ONE (21:15)
[2018-12-30] MEDS ORDERED: BENZOCAINE/MENTHOL (DERMOPLAST) 56 ML CAN TP PRN (21:15)
[2018-12-30] MEDS ORDERED: WITCH HAZEL(TUCKS) 40 EA JAR TOP PRN (21:15)
[2018-12-30] MEDS ORDERED: HYDROcodone/APAP 5 MG/325 MG (LORTAB) TAB PO PRN (21:15)
[2018-12-30] MEDS ORDERED: MEASLES,MUMPS,RUBELLA 1 EA INJ SQ ONE (21:15)
--- NOTE | 2018-12-30 21:21 | OB Labor & Delivery Record ---
L&D History Date of Service Date of Service: Dec 30, 2018 History Expected Date of Delivery: Dec 27, 2018 Gestational Age in Weeks: 40 Hx : 3 Hx Para: 2 Complications Events: Routine care Operative Indications (Cesarea: N/A-Vaginal Delivery Intrapartal Events: None L&D Stage1 Stage One Onset of Labor - Date: Dec 30, 2018 Monitors and Tracing Monitor Mode: Internal Heart Rate: 145 Monitor Accelerations: Uniform Monitor Decelerations: Variable Station: -2 Jail Variability: Average (6-10) Short Term Variability: Present Presentation: Vertex Vital Signs VS - Last 72 Hours, by Label 12/30/18 12/30/18 12/30/18 12/30/18 10:04 11:00 11:15 11:30 Temp 36.7 36.4 Pulse 115 113 85 108 Resp 20 20 20 20 B/P (MAP) 116/72 (87) 107/56 (73) 119/80 (93) 110/68 (82) O2 Delivery Room Air Room Air Room Air Room Air 12/30/18 12/30/18 12/30/18 12/30/18 11:45 12:00 12:10 12:15 Pulse 89 81 83 Resp 20 20 20 20 B/P (MAP) 111/78 (89) 109/59 (76) 120/60 (80) Pulse Ox 97 O2 Delivery Room Air Room Air Room Air Room Air 12/30/18 12/30/18 12/30/18 12/30/18 12:20 12:25 12:26 12:29 Pulse 101 91 86 99 Resp 20 20 20 20 B/P (MAP) 113/68 (83) 112/70 (84) 116/74 (88) 107/66 (80) Pulse Ox 97 98 98 97 O2 Delivery Room Air Room Air Room Air Room Air 12/30/18 12/30/18 12/30/18 12/30/18 12:30 12:45 13:00 13:15 Temp 36.3 Pulse 84 97 81 97 Resp 20 20 20 20 B/P (MAP) 107/68 (81) 104/56 (72) 108/62 (77) 117/67 (84) Pulse Ox 98 96 96 96 O2 Delivery Room Air Room Air Room Air Room Air 12/30/18 12/30/18 12/30/1817/19 13:30 13:45 14:00 14:15 Temp 36.6 Pulse 84 88 93 82 Resp 20 20 20 20 B/P (MAP) 113/64 (80) 113/69 (84) 116/69 (85) 114/61 (78) Pulse Ox 98 98 98 97 O2 Delivery Room Air Room Air Room Air Room Air 12/30/18 12/30/18 12/30/18 12/30/18 14:30 14:45 15:00 15:15 Temp 36.1 Pulse 77 86 77 95 Resp 20 20 20 20 B/P (MAP) 114/58 (76) 111/65 (80) 121/72 (88) Pulse Ox 97 98 96 97 O2 Delivery Room Air Room Air Room Air Room Air 12/30/18 12/30/18 12/30/18 12/30/18 15:30 15:45 16:00 16:15 Temp 36.4 Pulse 90 102 96 87 Resp 20 20 20 20 B/P (MAP) 115/66 (82) 118/70 (86) 110/69 (83) 119/71 (87) Pulse Ox 97 98 97 97 O2 Delivery Room Air Room Air Room Air Room Air 12/30/18 12/30/18 12/30/18 12/30/18 16:30 16:45 17:00 17:15 Temp 36.5 Pulse 96 92 115 115 Resp 20 20 20 20 B/P (MAP) 112/68 (83) 122/58 (79) 98/57 (71) 111/60 (77) Pulse Ox 98 100 97 97 O2 Delivery Room Air Room Air Room Air Room Air 12/30/18 12/30/18 12/30/18 12/30/18 17:30 17:45 18:00 18:15 Temp 36.5 Pulse 104 86 96 82 Resp 20 20 20 20 B/P (MAP) 119/70 (86) 125/66 (85) 116/64 (81) 140/65 (90) Pulse Ox 98 98 98 98 O2 Delivery Room Air Room Air Room Air Room Air 12/30/18 12/30/18 12/30/18 12/30/18 18:30 18:45 19:00 19:15 Temp 36.9 Pulse 87 75 78 81 Resp 20 20 20 18 B/P (MAP) 125/71 (89) 122/66 (84) 120/69 (86) 100/55 (70) Pulse Ox 99 99 98 99 O2 Delivery Room Air Room Air Room Air Room Air 12/30/18 12/30/18 12/30/18 19:30 19:45 20:00 Pulse 77 71 69 Resp 18 18 18 B/P (MAP) 95/52 (66) 103/59 (74) 114/65 (81) Pulse Ox 98 98 100 O2 Delivery Room Air Non Rebreather Non Rebreather O2 Flow Rate 15.00 15.00 Rupture of Membranes Spontaneous Ruture of Membrane: No Amniotic Membrane Rupture Time: 1301 Amniotic Membrane Fluid Desc.: Clear Induction/Anesthesia Epidural Cath Placement - Time: 1226 Progress/Notes Pitocin augmentation was used to a max dose of 8 mu, deep variable decels to the 90s were noted in late 1st stage in transition to 2nd stage. Maternal pushing encouraged and decent occurred, room prepped urgently for delivery. L&D Stage2 Stage Two Stage II Date: Dec 30, 2018 Monitors and Tracing Monitor Mode: Internal Heart Rate: 145 Monitor Decelerations: Variable Jail Variability: Average (6-10) Short Term Variability: Present Position: Right Occiput Anterior Presentation: Vertex Signs of Distress by FHT Signs of Distress deep heart rate decelerations with contractions Cord Descript/Complications Cord Vessel Description: 3 Vessels Complications true knot noted in cord after delivery Delivery Type Infant Delivery Method: Spontaneous Vaginal Anterior Shoulder: Right Episiotomy/Perineal Laceration Laceraction(s)/Extensions: Yes Episiotomy Description: Perineal Extension/lac, 1st degree Degree (describe repair) perineal lac repaired using 3-0 rapide Condition of Delivery 1 minute Comment: 8 5 minute Comment: 9 Notes live female infant weight 7lbs 13 oz Condition of Condition of Infant: Living Exam: No Observed Abnormalities Resuscitation Resuscitation: N/A - Spontaneous Resp L&D Stage3 Stage Three Stage III Date: Dec 30, 2018 Pictocin Pitocin Administration mu/min: 8 Pitocin ml/hr: 8 Pitocin Administration Comment: 2 bags of 30 mu pitocin given wide open after delivery of placenta Placenta Delivery Placenta Delivery: Spontaneous Delivery Summary Summary Estimated blood loss (mL): 300 300 Attending at delivery: Debra Matthews DO Condition of Delivery Examined: Cervix Examined, Uterus Explored Post Hemorrhage: No Condition of Mother stable Condition of Infant (s) stable DEBRA MATTHEWS DO Dec 30, 2018 9:21 pm
--- NOTE | 2018-12-30 23:30 | NUR ---
Pt to pp unit, this rn cont care. no ss distress, epidural cath out of back tip in tact, site wnl left o/a. Pt unable to urinate at this time, will cont to monitor.
[2018-12-30] MEDS: IBUPROFEN 600 MG (MOTRIN) TAB PO SCH (23:31)
[2018-12-31 03:20] VITALS: BP 104/71
--- NOTE | 2018-12-31 03:30 | NUR ---
Pt up to bathroom, first void since delivery, no ss distress noted, will cont to monitor.
[2018-12-31 05:12] LABS: BASOPHILS % (AUTO) 0 % (0-10); EOSINOPHILS # (AUTO) 0.1 10^3/uL (0.0-0.3); EOSINOPHILS % (AUTO) 0 % (0-10); HEMATOCRIT 30 % (35-52); HEMOGLOBIN 9.6 G/DL (11.5-16.0); LYMPHOCYTES % (AUTO) 22 % (12-44); MEAN CORPUSCULAR HEMOGLOBIN 25 PG (25-34); MEAN CORPUSCULAR HGB CONC 32 G/DL (32-36); MEAN CORPUSCULAR VOLUME 80 FL (80-99); MEAN PLATELET VOLUME 10.2 FL (7.4-10.4); MONOCYTES # (AUTO) 0.9 X 10^3 (0.0-1.0); MONOCYTES % (AUTO) 7 % (0-12); NEUTROPHILS # (AUTO) 9.9 X 10^3 (1.8-7.8); NEUTROPHILS % (AUTO) 71 % (42-75); PLATELET COUNT 284 10^3/uL (130-400); RED CELL DISTRIBUTION WIDTH 17.1 % (10.0-14.5); WHITE BLOOD COUNT 13.9 10^3/uL (4.3-11.0)
[2018-12-31] MEDS: IBUPROFEN 600 MG (MOTRIN) TAB PO SCH ×4 (05:32→23:18)
--- NOTE | 2018-12-31 08:22 | NUR ---
Dr Cornejo to see patient and review plan of care.
[2018-12-31 08:30] VITALS: BP 103/71
--- NOTE | 2018-12-31 08:36 | Postpartum Progress Note ---
Note Note Day # 1 Subjective: Patient is without complaints. Ambulating, voiding. Tolerating a regular diet without nausea or vomiting. Normal lochia. Pain is well controlled with oral pain medications. Objective: Physical Exam: General - Alert and oriented, no apparent distress Abdomen - Soft, appropriately tender to palpation, non-distended, fundus firm at umbilicus Extremities - no edema, negative Jose's bilaterally Assessment: PPD 1 NVD Acute blood loss anemia Plan: Routine care. Encourage breast feeding. Encourage ambulation. Ferrous sulfate supplementation. Plan for discharge tomorrow Vitals - Labs Vital Signs - I&O Vital Signs Date Time Temp Pulse Resp B/P (MAP) Pulse Ox O2 Delivery O2 Flow Rate FiO2 12/31/18 08:30 36.2 70 18 103/71 (82) 97 Room Air 12/31/18 03:20 36.1 71 18 104/71 (82) 97 Room Air 12/30/18 22:15 36.8 79 18 119/57 (77) Room Air 12/30/18 22:00 36.6 77 18 126/70 (88) Room Air 12/30/18 21:45 36.7 81 18 126/70 (88) Room Air 12/30/18 21:30 36.7 82 18 125/58 (80) Room Air 12/30/18 21:15 36.8 98 18 119/59 (79) Room Air 12/30/18 20:58 74 18 122/55 (77) 100 Room Air 15.00 12/30/18 20:45 81 18 119/60 (79) 99 Non Rebreather 15.00 12/30/18 20:30 68 18 108/58 (75) 99 Non Rebreather 15.00 12/30/18 20:15 84 18 122/63 (82) 100 Non Rebreather 15.00 12/30/18 20:00 69 18 114/65 (81) 100 Non Rebreather 15.00 12/30/18 19:45 71 18 103/59 (74) 98 Non Rebreather 15.00 12/30/18 19:30 77 18 95/52 (66) 98 Room Air 12/30/18 19:15 81 18 100/55 (70) 99 Room Air 12/30/18 19:00 36.9 78 20 120/69 (86) 98 Room Air 12/30/18 18:45 75 20 122/66 (84) 99 Room Air 12/30/18 18:30 87 20 125/71 (89) 99 Room Air 12/30/18 18:15 36.5 82 20 140/65 (90) 98 Room Air 12/30/18 18:00 96 20 116/64 (81) 98 Room Air 12/30/18 17:45 86 20 125/66 (85) 98 Room Air 12/30/18 17:30 104 20 119/70 (86) 98 Room Air 12/30/18 17:15 115 20 111/60 (77) 97 Room Air 12/30/18 17:00 115 20 98/57 (71) 97 Room Air 12/30/18 16:45 36.5 92 20 122/58 (79) 100 Room Air 12/30/18 16:30 96 20 112/68 (83) 98 Room Air 12/30/18 16:15 87 20 119/71 (87) 97 Room Air 12/30/18 16:00 36.4 96 20 110/69 (83) 97 Room Air 12/30/18 15:45 102 20 118/70 (86) 98 Room Air 12/30/18 15:30 90 20 115/66 (82) 97 Room Air 12/30/18 15:15 95 20 121/72 (88) 97 Room Air 12/30/18 15:00 36.1 77 20 111/65 (80) 96 Room Air 12/30/18 14:45 86 20 114/58 (76) 98 Room Air 12/30/18 14:30 77 20 97 Room Air 12/30/18 14:15 36.6 82 20 114/61 (78) 97 Room Air 12/30/18 14:00 93 20 116/69 (85) 98 Room Air 12/30/18 13:45 88 20 113/69 (84) 98 Room Air 12/30/18 13:30 84 20 113/64 (80) 98 Room Air 12/30/18 13:15 36.3 97 20 117/67 (84) 96 Room Air 12/30/18 13:00 81 20 108/62 (77) 96 Room Air 12/30/18 12:45 97 20 104/56 (72) 96 Room Air 12/30/18 12:30 84 20 107/68 (81) 98 Room Air 12/30/18 12:29 99 20 107/66 (80) 97 Room Air 12/30/18 12:26 86 20 116/74 (88) 98 Room Air 12/30/18 12:25 91 20 112/70 (84) 98 Room Air 12/30/18 12:20 101 20 113/68 (83) 97 Room Air 12/30/18 12:15 20 Room Air 12/30/18 12:10 83 20 120/60 (80) 97 Room Air 12/30/18 12:00 81 20 109/59 (76) Room Air 12/30/18 11:45 89 20 111/78 (89) Room Air 12/30/18 11:30 108 20 110/68 (82) Room Air 12/30/18 11:15 36.4 85 20 119/80 (93) Room Air 12/30/18 11:00 113 20 107/56 (73) Room Air 12/30/18 10:04 36.7 115 20 116/72 (87) Room Air I & O 12/31/18 07:00 Intake Total 2000 ml Balance 2000 ml Labs Laboratory Tests 12/30/18 10:40: White Blood Count 10.1, Red Blood Count 4.48, Hemoglobin 11.3L, Hematocrit 35, Mean Corpuscular Volume 78L, Mean Corpuscular Hemoglobin 25, Mean Corpuscular He moglobin Concent 32, Red Cell Distribution Width 16.8H, Platelet Count 335, Mean Platelet Volume 10.3, Neutrophils (%) (Auto) 72, Lymphocytes (%) (Auto) 23, Monocytes (%) (Auto) 5, Eosinophils (%) (Auto) 0, Basophils (%) (Auto) 0, Neut rophils # (Auto) 7.2, Lymphocytes # (Auto) 2.3, Monocytes # (Auto) 0.5, Eosinophils # (Auto) 0.0, Basophils # (Auto) 0.0 12/31/18 04:54: White Blood Count 13.9H, Red Blood Count 3.78L, Hemoglobin 9.6L, Hematocrit 30L, Mean Corpuscular Volume 80, Mean Corpuscular Hemoglobin 25, Mean Corpuscular Hemoglobin Concent 32, Red Cell Distribution Width 17.1H, Platelet Count 284, Mean Platelet Volume 10.2, Neutrophils (%) (Auto) 71, Lymphocytes (%) (Auto) 22, Monocytes (%) (Auto) 7, Eosinophils (%) (Auto) 0, Basophils (%) (Auto) 0, Neutrophils # (Auto) 9.9H, Lymphocytes # (Auto) 3.0, Monocytes # (Auto) 0.9, Eosinophils # (Auto) 0.1, Basophils # (Auto) 0.0 DEBRA MATTHEWS DO Dec 31, 2018 08:36
--- NOTE | 2018-12-31 09:42 | Anesthesia-Regional Post-Op ---
Regional Patient Condition Mental Status: Alert, Oriented x3 Circulation: Same as Pre-Op Headache: Absent Sensation: Full Recovery Motor Block: Absent Post Op Complications Complications None Follow Up Care/Instructions Patient Instructions None needed. Anesthesia/Patient Condition Patient is doing well, no complaints, stable vital signs, no apparent adverse anesthesia problems. No complications reported per nursing. NASRA VERDUZCO CRNA Dec 31, 2018 09:42
[2018-12-31] MEDS: PRENATAL VITAMIN 1 EA TAB PO SCH (11:08)
[2018-12-31] MEDS: FERROUS SULF 325 MG (IRON) TAB PO SCH (11:09)
[2018-12-31 13:55] VITALS: BP 112/68
[2018-12-31 17:48] VITALS: BP 106/73
[2018-12-31 23:18] VITALS: BP 104/70
[2018-12-31] MEDS: DOCUSATE SODIUM 100 MG (COLACE) CAP PO SCH (23:18)
[2019-01-01 05:25] VITALS: BP 128/77
[2019-01-01] MEDS: IBUPROFEN 600 MG (MOTRIN) TAB PO SCH (05:25)
[2019-01-01 07:35] VITALS: BP_SYST 102; BP_SYST 105; BP_DIAS 53
[2019-01-01] MEDS: DOCUSATE SODIUM 100 MG (COLACE) CAP PO SCH (07:45)
[2019-01-01] MEDS: FERROUS SULF 325 MG (IRON) TAB PO SCH (07:45)
[2019-01-01] MEDS: PRENATAL VITAMIN 1 EA TAB PO SCH (07:45)
--- NOTE | 2019-01-01 08:02 | Postpartum Progress Note ---
Note Note Day # 2 Subjective: Patient is without complaints. Ambulating, voiding. Tolerating a regular diet without nausea or vomiting. Normal lochia. Pain is well controlled with oral pain medications. Objective: Physical Exam: General - Alert and oriented, no apparent distress Abdomen - Soft, appropriately tender to palpation, non-distended, fundus firm at umbilicus Extremities - no edema, negative Jose's bilaterally Assessment: PPD 2 NVD Acute blood loss anemia Plan: Routine care. Encourage breast feeding. Encourage ambulation. Ferrous sulfate supplementation. Plan for discharge today Vitals - Labs Vital Signs - I&O Vital Signs Date Time Temp Pulse Resp B/P (MAP) Pulse Ox O2 Delivery O2 Flow Rate FiO2 01/01/19 05:25 36.2 98 18 128/77 (94) 98 Room Air 12/31/18 23:18 36.4 71 18 104/70 (81) 97 Room Air 12/31/18 17:48 36.1 75 18 106/73 (84) 97 Room Air 12/31/18 13:55 36.1 71 18 112/68 (83) 98 Room Air 12/31/18 08:30 36.2 70 18 103/71 (82) 97 Room Air DEBRA MATTHEWS DO Jan 01, 2019 08:02
[2019-01-01] MEDS ORDERED: IBUP-844 PO (08:03)
[2019-01-01] MEDS ORDERED: Benzocaine/Menthol TP (08:03)
[2019-01-01] MEDS ORDERED: ACHD5005 PO (08:03)
[2019-01-01] MEDS ORDERED: DOCU100C37 PO (08:03)
[2019-01-01] MEDS ORDERED: FERR325T18 PO (08:03)
--- NOTE | 2019-01-01 08:04 | Discharge Inst-Women's Service ---
Discharge Inst-Women's Serv Depart Medication/Instructions New, Converted or Re-Newed RX: RX on Chart Final Diagnosis PPD 2 NVD, Acute blood loss anemia Problems Reviewed?: Yes Consults/Follow Up Additional Follow Up: Yes Orders/Referrals Dr. Matthews in 6 weeks Activity Activity: Activity as Tolerated Driving Instructions: No Driving for 1 Week NO SMOKING: NO SMOKING Nothing Inside Vagina: No Douching, No [place], No Tampons Diet Discharge Diet: No Restrictions Symptoms to Report to : Bleeding Excessive, Pain Increased, Fever Over 101 Degrees F, Vaginal Bleeding Increase, Questions/Concerns For Any Problems or Questions: Contact Your Physician DEBRA MATTHEWS DO Jan 01, 2019 08:04
[2019-01-01] MEDS ORDERED: TETANUS,DIPTH,PERTUSS P/F (BOOSTRIX) 0.5 ML VIAL IM ONE (11:44)
--- NOTE | 2019-01-01 12:20 | NUR ---
Home instructions given with pt verbalizing understanding. Baby in car seat. To exit ambulatory accompanied by Dara student nurse.
== END 2019-01-01 12:20 | disposition home or self-care (01) | DRG 806 ==
LOC: LDRP 10:00
PROVIDERS: ADMIT Obstetrics & Gynecology; ATTEND Obstetrics & Gynecology
PROC: 10E0XZZ Delivery of Products of Conception, External Approach (ICD-10-PCS; principal; 2018-12-30)
PROC: 0W8NXZZ Division of Female Perineum, External Approach (ICD-10-PCS; 2018-12-30)
PROC: 0HQ9XZZ Repair Perineum Skin, External Approach (ICD-10-PCS; 2018-12-30)
PROC: 3E033VJ Introduction of Other Hormone into Peripheral Vein, Percutaneous Approach (ICD-10-PCS; 2018-12-30)
DX: O48.0 Post-term pregnancy (principal); O90.81 Anemia of the puerperium; D62 Acute posthemorrhagic anemia; O76 Abnormality in fetal heart rate and rhythm complicating labor and delivery; O69.82X0 Labor and delivery complicated by other cord entanglement, without compression, not applicable or unspecified; O70.0 First degree perineal laceration during delivery; O99.344 Other mental disorders complicating childbirth; F41.9 Anxiety disorder, unspecified; Z3A.40 40 weeks gestation of pregnancy; Z37.0 Single live birth; Z23 Encounter for immunization
CPT/HCPCS: 36415; 85025; 86850; 86900; 86901; 88307; 90715

== ENCOUNTER 2022-06-22 20:40 | Emergency (ER) | payer SELFPAY ==
[~2022-06-22] VITALS: Ht 180.3 cm; Wt 131.5 kg
[~2022-06-22 20:40] MED LIST changes: +ACET-11 PO; -ACET1TAB43 PO; +Benzocaine/Menthol TP; +CLIN-144 PO; -CLIN150C17 PO; +CLIN150C20 PO; -CLIN300C11 PO; +DOCU100C37 PO; +IBUP-844 PO
--- NOTE | 2022-06-22 20:51 | ED Chest Pain ---
General Chief Complaint: Cardiac/General Problems Stated Complaint: CHEST PAIN Source: patient Exam Limitations: no limitations History of Present Illness Date Seen by Provider: Jun 22, 2022 Time Seen by Provider: 20:49 Initial Comments Patient is a 32-year-old female with a history of anxiety who presents ED with chest pain, shortness of breath. She states the pain started this evening. She is unclear exactly what time. She states she was doing laundry started having severe right-sided chest pressure. Rated a 10 out of 10 radiated to the center part of her chest. Started to have shortness of breath. EMS was called to the scene. Patient was found to be hyperventilating and placed a nonrebreather over her face. She was given 324 of aspirin and Nitropaste. The breathing continued to improve as well as the chest pain. On arrival she rates chest pressure 3 out of 10. Breathing controlled. She does states she have a history of a panic attacks but states this feels different. She is currently breast-feeding. No recent travels or surgeries. She reports mild nasal congestion, sinus pressure and cough over the past few days. Denies of any abdominal pain, dysuria, diarrhea, vomiting, diarrhea, headache, dizziness. Allergies and Home Medications Allergies Coded Allergies: No Known Drug Allergies (Unverified , 04/18/14) Patient Home Medication List Home Medication List Reviewed: Yes Docusate Sodium (Docusate Sodium) 100 Mg Capsule, 100 MG PO BID PRN for CONSTIPATION-1ST LINE Prescribed by: DEBRA MATTHEWS on 01/01/19 08 Ferrous Sulfate (Ferrous Sulfate) 325 Mg Tablet, 325 MG PO DAILY Prescribed by: DEBRA MATTHEWS on 01/01/19 08 Hydrocodone Bit/Acetaminophen (Lortab 5 Mg Tablet) 1 Tab Tab, 1 TAB PO Q4H PRN for PAIN-MODERATE Prescribed by: DEBRA MATTHEWS on 01/01/19 08 Ibuprofen (Ibu) 600 Mg Tablet, 600 MG PO Q6HR Prescribed by: DEBRA MATTHEWS on 01/01/19 08 Vit W-Ca,Fe,FA(<1 mg) ( Formula) 1 Each Tablet, 1 EACH PO DAILY, (Reported) Entered as Reported by: GRAEME ROQUE on 01/02/17 0936 [Benzocaine/Menthol] 56 ML AEROSOL, 56 ML TP UD PRN for PAIN- SEE INSTRUCTIONS Prescribed by: DEBRA MATTHEWS on 01/01/19 0803 Review of Systems Review of Systems Constitutional: No chills, No diaphoresis, No malaise, No weakness EENTM: No Double Vision, No Eye Pain Respiratory: Cough, Shortness of Air Cardiovascular: Chest Pain Gastrointestinal: Denies Abdominal Pain, Denies Diarrhea, Denies Nausea, Denies Vomiting Genitourinary: Denies Burning, Denies Discharge, Denies Drainage, Denies Frequency Musculoskeletal: No back pain, No joint pain Skin: No change in color, No change in hair/nails All Other Systems Reviewed Negative Unless Noted: Yes Past [id number]-[id number] Hx Immunizations Up To Date Tetanus Booster (TDap): Unknown PED Vaccines UTD: Yes Seasonal Allergies Seasonal Allergies: No Past Medical History Surgeries: Yes (RUPTURED APPENDIX--HOSPITALIZED X 3 WEEKS) Appendectomy, Gallbladder Respiratory: No Cardiac: No Neurological: No Reproductive Disorders: No Female Reproductive Disorders: Denies [employer]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 Sexually Transmitted Disease: No HIV/AIDS: No Genitourinary: Yes Bladder Infection Gastrointestinal: Yes Gall Bladder Disease Musculoskeletal: No Endocrine: No (MORBID OBESITY) HEENT: No Loss of Vision: Denies Hearing Impairment: Denies Cancer: No Psychosocial: Yes Anxiety Integumentary: No Blood Disorders: No Adverse Reaction/Blood Tranf: No Family Medical History Diabetes mellitus 19 FATHER 19 MOTHER Grandparents (Paternal Grandmother) FH: prostate cancer Grandparents (Paternal Grandfather) Hypercholesterolemia 19 FATHER Hypertension 19 FATHER No Pertinent Family Hx Physical Exam Vital Signs Vital Signs - First Documented 06/22/22 06/22/22 20:40 20:45 Temp 36.7 Pulse 84 Resp 16 B/P (MAP) 122/81 (95) Pulse Ox 94 O2 Delivery Room Air Capillary Refill : Height, Weight, BMI Height: 5'10.50" Weight: 314lbs. 4.0oz. 142.380352iz; 44.28 BMI Method:Stated General Appearance: No Apparent Distress, WD/WN HEENT: PERRL/EOMI, TMs Normal, Normal ENT Inspection, Pharynx Normal Neck: Full Range of Motion, Normal Inspection, Non Tender, Supple Respiratory: Chest Non Tender, Lungs Clear, Normal Breath Sounds, No Accessory Muscle Use Cardiovascular: Regular Rate, Rhythm, No Edema, No Gallop, No JVD, No Murmur Gastrointestinal: Normal Bowel Sounds, No Organomegaly, No Pulsatile Mass, Non Tender Rectal: Normal Exam Extremity: Normal Capillary Refill, Normal Inspection Neurologic/Psychiatric: Alert, Oriented x3, No Motor/Sensory Deficits, Normal Mood/Affect, customer service voice II-XII Norm as Tested Skin: Normal Color, Warm/Dry Progress/Results/Core Measures Results/Orders Lab Results Laboratory Tests Test 06/22/22 20:48 06/22/22 21:10 Range/Units White Blood Count 13.1 H 4.3-11.0 10^3/uL Red Blood Count 4.45 3.80-5.11 10^6/uL Hemoglobin 11.1 L 11.5-16.0 g/dL Hematocrit 35 35-52 % Mean Corpuscular Volume 78 L 80-99 fL Mean Corpuscular Hemoglobin 25 25-34 pg Mean Corpuscular Hemoglobin Concent 32 32-36 g/dL Red Cell Distribution Width 15.8 H 10.0-14.5 % Platelet Count 372 130-400 10^3/uL Mean Platelet Volume 9.5 9.0-12.2 fL Immature Granulocyte % (Auto) 0 % Neutrophils (%) (Auto) 66 42-75 % Lymphocytes (%) (Auto) 28 12-44 % Monocytes (%) (Auto) 5 0-12 % Eosinophils (%) (Auto) 1 0-10 % Basophils (%) (Auto) 0 0-10 % Neutrophils # (Auto) 8.6 H 1.8-7.8 10^3/uL Lymphocytes # (Auto) 3.6 1.0-4.0 10^3/uL Monocytes # (Auto) 0.7 0.0-1.0 10^3/uL Eosinophils # (Auto) 0.1 0.0-0.3 10^3/uL Basophils # (Auto) 0.1 0.0-0.1 10^3/uL Immature Granulocyte # (Auto) 0.1 0.0-0.1 10^3/uL B-Type Natriuretic Peptide < 10.0 <100.0 PG/ML Prothrombin Time 14.0 12.2-14.7 SEC INR Comment 1.0 0.8-1.4 Activated Partial Thromboplast Time 37 H 24-35 SEC Sodium Level 138 135-145 MMOL/L Potassium Level 4.1 3.6-5.0 MMOL/L Chloride Level 104 98-107 MMOL/L Carbon Dioxide Level 24 21-32 MMOL/L Anion Gap 10 5-14 MMOL/L Blood Urea Nitrogen 11 7-18 MG/DL Creatinine 0.69 0.60-1.30 MG/DL Estimat Glomerular Filtration Rate 120 BUN/Creatinine Ratio 16 Glucose Level 83 70-105 MG/DL Calcium Level 9.4 8.5-10.1 MG/DL Corrected Calcium 9.6 8.5-10.1 MG/DL Magnesium Level 2.0 1.6-2.4 MG/DL Total Bilirubin 0.2 0.1-1.0 MG/DL Aspartate Amino Transf (AST/SGOT) 18 5-34 U/L Alanine Aminotransferase (ALT/SGPT) 13 0-55 U/L Alkaline Phosphatase 67 40-136 U/L Myoglobin 20.9 10.0-92.0 NG/ML Troponin I < 0.028 <0.028 NG/ML Total Protein 8.3 H 6.4-8.2 GM/DL Albumin 3.7 3.2-4.5 GM/DL Lipase 15 8-78 U/L My Orders Orders - NANCIE HERNANDEZ PA Cbc With Automated Diff (06/22/22 20:48) Magnesium (06/22/22 20:48) Chest 1 View, Ap/Pa Only (06/22/22 20:48) Ekg Tracing (06/22/22 20:48) Comprehensive Metabolic Panel (06/22/22 20:48) Myoglobin Serum (06/22/22 20:48) Protime With Inr (06/22/22 20:48) Partial Thromboplastin Time (06/22/22 20:48) O2 (06/22/22 20:48) Monitor-Rhythm Ecg Trace Only (06/22/22 20:48) Ed Iv/Invasive Line Start (06/22/22 20:48) Lipase (06/22/22 20:48) Bnp Baxter (06/22/22 20:48) Troponin I Danny (06/22/22 20:48) Vital Signs/I&O 06/22/22 06/22/22 06/22/22 20:40 20:45 22:35 Temp 36.7 36.8 Pulse 84 71 Resp 16 12 B/P (MAP) 122/81 (95) 110/82 Pulse Ox 94 94 99 O2 Delivery Room Air Room Air Comment Sinus rhythm, 82 bpm, QRS duration 156 MS, QTc 448 MS. Departure Communication (PCP) Reviewed previous ER visits. Patient was brought to ED by EMS. She was given full aspirin and Nitropaste. Symptoms improved on arrival. Patient was doing laundry at the time of the chest pain. Denies history of similar type pain. EKG showed normal sinus rhythm without evidence of ST elevation, depression, arrhythmia. No evidence of murmur. Denies history of hypertension, high cholesterol, smoking. Family cardiac history. She is supposed to be on injections for prediabetes but not using any injection secondary to breast-feeding on 3 years now. She cannot recall the medication. She does have a few cardiac risk factors. Would not suspect a cardiac event at her age however due to her current presentation cardiac work-up was initiated. Patient CBC was at 13. Normal hemoglobin. Normal chemistry with normal troponin. Chest x-ray was negative for pneumonia, pneumothorax, mediastinal widening. She was not tachycardic or hypoxic suggesting PE. No recent travels or surgeries. Denies any leg pain. Heart score is 1. PERC is 0. Patient was observed here in the ED. Her symptoms improved once here breathing was controlled. Discussed all results with patient. Not necessarily concern for ACS. Do recommend outpatient follow-up with her primary care physician to discuss further cardiac work-up. May benefit with echocardiogram. Potentially panic attacks with the hyperventilating however further evaluation needs to be performed to rule out other potential etiologies. Patient feels comfortable to go home at this time. Strongly recommend returning back to ED if chest pain progress or worsen. She agrees with plan of action. Impression Primary Impression: Chest pain Disposition: HOME, SELF-CARE Condition: Stable Departure-Patient Inst. Decision time for Depature: 22:23 Referrals: ALEJANDRO RENEE DO (PCP/Family) Primary Care Physician Patient Instructions: Chest Pain (DC) Add. Discharge Instructions: Recommend continue monitoring chest pain at home. If symptoms become worse recommend returning back to ED. follow-up with your primary care physician within the next week for reevaluation All discharge instructions reviewed with patient and/or family. Voiced understanding. NANCIE HERNANDEZ Jun 22, 2022 20:51
[2022-06-22 20:56] LABS: BASOPHILS # (AUTO) 0.1 10^3/uL (0.0-0.1); BASOPHILS % (AUTO) 0 % (0-10); EOSINOPHILS # (AUTO) 0.1 10^3/uL (0.0-0.3); EOSINOPHILS % (AUTO) 1 % (0-10); HEMATOCRIT 35 % (35-52); HEMOGLOBIN 11.1 g/dL (11.5-16.0); LYMPHOCYTES # (AUTO) 3.6 10^3/uL (1.0-4.0); LYMPHOCYTES % (AUTO) 28 % (12-44); MEAN CORPUSCULAR HEMOGLOBIN 25 pg (25-34); MEAN CORPUSCULAR HGB CONC 32 g/dL (32-36); MEAN CORPUSCULAR VOLUME 78 fL (80-99); MEAN PLATELET VOLUME 9.5 fL (9.0-12.2); MONOCYTES # (AUTO) 0.7 10^3/uL (0.0-1.0); MONOCYTES % (AUTO) 5 % (0-12); NEUTROPHILS # (AUTO) 8.6 10^3/uL (1.8-7.8); NEUTROPHILS % (AUTO) 66 % (42-75); PLATELET COUNT 372 10^3/uL (130-400); WHITE BLOOD COUNT 13.1 10^3/uL (4.3-11.0)
[2022-06-22 21:44] LABS: ALBUMIN 3.7 GM/DL (3.2-4.5); BILIRUBIN,TOTAL 0.2 MG/DL (0.1-1.0); CALCIUM 9.4 MG/DL (8.5-10.1); CREATININE SERUM 0.69 MG/DL (0.60-1.30); POTASSIUM 4.1 MMOL/L (3.6-5.0); TOTAL PROTEIN 8.3 GM/DL (6.4-8.2)
--- NOTE | 2022-06-22 21:51 | Diagnostic Imaging Report ---
EXAMINATION: Chest 1 view. HISTORY: Chest pain COMPARISON: None available. FINDINGS: The lungs are clear without edema or pneumonia. No pleural effusion or pneumothorax. Heart size is normal. IMPRESSION: Clear lungs. Dictated by: Dictated on workstation # [id number]
[2022-06-22 22:35] VITALS: BP 110/82
== END 2022-06-22 22:35 | disposition home or self-care (01) ==
LOC: EDUNIT# 20:40 → ER 20:42
DX: R07.89 Other chest pain (principal); E66.01 Morbid (severe) obesity due to excess calories; Z68.41 Body mass index [BMI] 40.0-44.9, adult; Z28.310 Unvaccinated for COVID-19
CPT/HCPCS: 36415; 71045; 80053; 83690; 83735; 83874; 83880; 84484; 85025; 85610; 85730; 93005; 93041